=== PATIENT | female | born 1935 | race African-American/Black ===

== ENCOUNTER 2017-04-29 23:41 | Observation (INO) ==
[2017-04-30] MEDS ORDERED: ONDANSETRON 4 MG/2 ML VIAL IV STA (00:49)
[2017-04-30 01:17] LABS: Basophils % 0.4 % (0.0-0.8); Eosinophils # 0.1 10*3/uL (0.0-0.87); Eosinophils % 2.4 % (0.00-10.9); Hematocrit 38.8 VOL% (35.7-47.0); Hemoglobin 12.4 GM/DL (12.0-16.0); Immature Granulocytes % 0.2 %; Immature Granulocytes Absolute 0.01 #; Lymphocytes # 1.4 10*3/uL (1.4-4.0); Lymphocytes % 31.2 % (21.3-54.2); Mean Corpuscular Hemoglobin 29 PG (27-34); Mean Corpuscular Volume 91.7 FL (87-102); Mean Platelet Volume 11.6 FL (9.6-12.0); Monocytes # 0.6 10*3/uL (0.11-0.8); Neutrophils # 2.5 10*3/uL (1.4-7.4); Neutrophils % 53.8 % (38.7-73.9); Platelet Count 147 T/CUMM (130-400); Red Blood Count 4.23 MC/CUMM (3.8-5.5); Red Cell Distribution Width 14.5 % (9.3-17.3); White Blood Count 4.6 T/CUMM (4-12)
[2017-04-30 01:39] LABS: Albumin 3.6 G/DL (3.4-5.0); Bilirubin,Total 0.4 MG/DL (0.2-1.0); Calcium 7.6 MG/DL (8.5-10.1); Osmolality,Calculated 281.5 MOS/KG (273-304); Potassium 3.4 MMOL/L (3.5-5.1); Total Protein 7.3 G/DL (6.4-8.3)
[2017-04-30] MEDS ORDERED: ONDANSETRON 4 MG/2 ML VIAL ONE (01:39)
[2017-04-30 01:40] LABS: Troponin I Only 0.069 NG/ML (0.00-0.045)
[2017-04-30 02:01] LABS: Apearance,Urine CLEAR (Clear); Bacteria,Urine Occasional /HPF (Few); Bilirubin,Urine Negative (Negative); Blood, Urine Negative (Negative); Glucose,Urine (UA) Negative (Negative); Hyaline Casts,Urine 4 /LPF (0-3); Ketones,Urine Negative (Negative); Mucus,Urine Occasional /LPF (Occasional); Nitrite,Urine Negative (Negative); Protein,Urine 100 MG/DL; Urine Color Yellow (Yellow); Urine Specific Gravity 1.011 (1.001-1.035); Urine Urobilinogen < 2.0 EU/DL (0.2-1.0); WBC,Urine 8 /HPF (0-6)
[2017-04-30] MEDS ORDERED: ONDANSETRON 4 MG/2 ML VIAL IV PRN (04:26)
[2017-04-30] MEDS ORDERED: POLYVINYL ALCOHOL 1.4% OPH SOLN 15 ML BOTTLE BOTH EYES PRN (04:32)
[2017-04-30 08:28] LABS: Alanine Aminotransferase < 9 U/L (13-56); Albumin 2.7 G/DL (3.4-5.0); Alkaline Phosphatase 103 U/L (45-117); Aspartate Amino Transferase 11 U/L (0-37); Blood Urea Nitrogen 31 MG/DL (7-18); Calcium 7.3 MG/DL (8.5-10.1); Cholesterol 179 MG/DL (50-200); Glucose 75 MG/DL (74-106); HDL Cholesterol 70 MG/DL (40-60); Osmolality,Calculated 284.4 MOS/KG (273-304); Potassium 3.4 MMOL/L (3.5-5.1); Risk Ratio 2.56; Sodium 140 MMOL/L (136-145); Total Protein 5.8 G/DL (6.4-8.3); Triglycerides 61 MG/DL (2-150); VLDL CHOLESTEROL 12.2 MG/DL
[2017-04-30] MEDS: BRIMONIDINE/TIMOLOL OPH SOLN 5 ML BOTTLE BOTH EYES SCH ×2 (09:54→20:30)
[2017-04-30] MEDS: LEVOTHYROXINE 50 MCG TABLET PO SCH (09:55)
[2017-04-30] MEDS: ASPIRIN EC 81 MG TABLET PO SCH (09:55)
[2017-04-30] MEDS: PANTOPRAZOLE 40 MG TABLET PO SCH (09:55)
[2017-04-30] MEDS: risperiDONE 0.5 MG TABLET PO SCH (09:55)
[2017-04-30] MEDS: FAMOTIDINE 20 MG TABLET PO SCH ×2 (09:55→20:30)
[2017-04-30] MEDS: ENOXAPARIN 30 MG/0.3 ML SYRINGE SUBCUT SCH (09:56)
[2017-04-30 10:23] LABS: Free T4 (Free Thyroxine) 1.22 NG/DL (0.76-1.46); Thyroid Stimulating Hormone 1.55 uIU/ml (0.358-3.74)
[2017-04-30 12:56] LABS: Troponin I Only 0.068 NG/ML (0.00-0.045)
[2017-04-30 15:17] LABS: Troponin I Only 0.071 NG/ML (0.00-0.045)
[2017-04-30] MEDS: CALCIUM CARBONATE CHEW 500 MG TABLET PO SCH ×2 (17:52→17:56)
[2017-04-30] MEDS: CINACALCET 30 MG TABLET PO SCH (20:30)
[2017-04-30] MEDS: TRAVOPROST 0.004% OPH SOLN 2.5 ML BOTTLE BOTH EYES SCH (20:30)
[2017-04-30] MEDS: risperiDONE 1 MG TABLET PO SCH (20:30)
[2017-05-01 03:41] LABS: Basophils % 0.6 % (0.0-0.8); Eosinophils # 0.1 10*3/uL (0.0-0.87); Eosinophils % 2.8 % (0.00-10.9); Hematocrit 33.9 VOL% (35.7-47.0); Hemoglobin 10.5 GM/DL (12.0-16.0); Lymphocytes # 1.1 10*3/uL (1.4-4.0); Lymphocytes % 31.6 % (21.3-54.2); Mean Corpuscular Hemoglobin 29 PG (27-34); Mean Corpuscular Volume 93.4 FL (87-102); Monocytes # 0.7 10*3/uL (0.11-0.8); Monocytes % 18.8 % (1.7-12.7); Neutrophils # 1.6 10*3/uL (1.4-7.4); Neutrophils % 46.2 % (38.7-73.9); Platelet Count 131 T/CUMM (130-400); Red Blood Count 3.63 MC/CUMM (3.8-5.5); Red Cell Distribution Width 14.3 % (9.3-17.3); White Blood Count 3.5 T/CUMM (4-12)
[2017-05-01 04:02] LABS: Calcium 7.4 MG/DL (8.5-10.1); Magnesium 1.9 MG/DL (1.8-2.4); Osmolality,Calculated 283.1 MOS/KG (273-304); Potassium 3.7 MMOL/L (3.5-5.1)
[2017-05-01 05:04] LABS: Eosinophils 5 % (0-10); Hypochromasia 1+; Lymphocytes 32 % (20-55); Ovalocytes Slight; Platelet Estimate Normal; Segmented Neutrophils 49 % (50-85); Total Cells Counted 100
[2017-05-01] MEDS: LEVOTHYROXINE 50 MCG TABLET PO SCH (05:49)
[2017-05-01] MEDS: ENOXAPARIN 30 MG/0.3 ML SYRINGE SUBCUT SCH (09:03)
[2017-05-01] MEDS: risperiDONE 0.5 MG TABLET PO SCH (09:03)
[2017-05-01] MEDS: ASPIRIN EC 81 MG TABLET PO SCH (09:03)
[2017-05-01] MEDS: FAMOTIDINE 20 MG TABLET PO SCH ×2 (09:03→21:27)
[2017-05-01] MEDS: CALCIUM CARBONATE CHEW 500 MG TABLET PO SCH ×3 (09:03→17:28)
[2017-05-01] MEDS: PANTOPRAZOLE 40 MG TABLET PO SCH (09:03)
[2017-05-01] MEDS: BRIMONIDINE/TIMOLOL OPH SOLN 5 ML BOTTLE BOTH EYES SCH ×2 (09:04→21:26)
[2017-05-01] MEDS: TRAVOPROST 0.004% OPH SOLN 2.5 ML BOTTLE BOTH EYES SCH (21:27)
[2017-05-01] MEDS: CINACALCET 30 MG TABLET PO SCH (21:27)
[2017-05-01] MEDS: risperiDONE 1 MG TABLET PO SCH (21:27)
[2017-05-02 03:53] LABS: Basophils % 0.6 % (0.0-0.8); Eosinophils # 0.1 10*3/uL (0.0-0.87); Eosinophils % 3.7 % (0.00-10.9); Hemoglobin 10.3 GM/DL (12.0-16.0); Immature Granulocytes % 0.3 %; Immature Granulocytes Absolute 0.01 #; Lymphocytes # 1.3 10*3/uL (1.4-4.0); Lymphocytes % 41.4 % (21.3-54.2); Mean Corpuscular HGB Conc 31.2 GM/DL (32-36); Mean Corpuscular Hemoglobin 29 PG (27-34); Mean Corpuscular Volume 92.2 FL (87-102); Mean Platelet Volume 11.5 FL (9.6-12.0); Monocytes # 0.5 10*3/uL (0.11-0.8); Monocytes % 14.8 % (1.7-12.7); Neutrophils # 1.3 10*3/uL (1.4-7.4); Neutrophils % 39.2 % (38.7-73.9); Platelet Count 137 T/CUMM (130-400); Red Blood Count 3.58 MC/CUMM (3.8-5.5); Red Cell Distribution Width 14.3 % (9.3-17.3); White Blood Count 3.2 T/CUMM (4-12)
[2017-05-02 04:56] LABS: Burr Cells Slight; Calcium 7.5 MG/DL (8.5-10.1); Giant Platelets Few; Hypochromasia 1+; Magnesium 1.8 MG/DL (1.8-2.4); Osmolality,Calculated 283.4 MOS/KG (273-304); Ovalocytes Slight; Platelet Estimate Normal
[2017-05-02] MEDS: LEVOTHYROXINE 50 MCG TABLET PO SCH (06:03)
[2017-05-02 08:18] VITALS: BP 136/69
[2017-05-02] MEDS: ENOXAPARIN 30 MG/0.3 ML SYRINGE SUBCUT SCH (08:32)
[2017-05-02] MEDS: FAMOTIDINE 20 MG TABLET PO SCH (08:33)
[2017-05-02] MEDS: CALCIUM CARBONATE CHEW 500 MG TABLET PO SCH ×3 (08:33→17:04)
[2017-05-02] MEDS: PANTOPRAZOLE 40 MG TABLET PO SCH (08:33)
[2017-05-02] MEDS: risperiDONE 0.5 MG TABLET PO SCH (08:33)
[2017-05-02] MEDS: ASPIRIN EC 81 MG TABLET PO SCH (08:33)
[2017-05-02] MEDS: BRIMONIDINE/TIMOLOL OPH SOLN 5 ML BOTTLE BOTH EYES SCH (08:33)
== END 2017-05-02 16:52 | disposition home or self-care (01) ==
LOC: N.ED 23:41 → N.TELEN 23:41 → SUATTDRO 04-30 04:26 → N.TELEN 04-30 05:02
PROVIDERS: ADMIT Internal Medicine; ATTEND Hospitalist

== ENCOUNTER 2017-06-22 05:36 | Inpatient (IN) ==
[2017-06-22 07:21] LABS: PT Patient Result 10.8 SECS
[2017-06-22 07:41] LABS: Calcium 6.6 MG/DL (8.5-10.1); Magnesium 1.8 MG/DL (1.8-2.4); Osmolality,Calculated 288.5 MOS/KG (273-304); Potassium 4.1 MMOL/L (3.5-5.1)
[2017-06-22 08:21] LABS: Basophils % 0.5 % (0.0-0.8); Eosinophils # 0.1 10*3/uL (0.0-0.87); Hemoglobin 10.3 GM/DL (12.0-16.0); Immature Granulocytes % 0.2 %; Immature Granulocytes Absolute 0.01 #; Lymphocytes # 1.4 10*3/uL (1.4-4.0); Lymphocytes % 32.5 % (21.3-54.2); Mean Corpuscular HGB Conc 32.2 GM/DL (32-36); Mean Corpuscular Hemoglobin 30 PG (27-34); Mean Corpuscular Volume 93.8 FL (87-102); Mean Platelet Volume 10.6 FL (9.6-12.0); Monocytes # 0.6 10*3/uL (0.11-0.8); Neutrophils # 2.2 10*3/uL (1.4-7.4); Neutrophils % 49.8 % (38.7-73.9); Platelet Count 148 T/CUMM (130-400); Red Blood Count 3.41 MC/CUMM (3.8-5.5); Red Cell Distribution Width 15.9 % (9.3-17.3); White Blood Count 4.4 T/CUMM (4-12)
[2017-06-22] MEDS ORDERED: ACETAMINOPHEN 325 MG TABLET PO PRN (10:58)
[2017-06-22] MEDS ORDERED: ONDANSETRON 4 MG/2 ML VIAL IV PRN (10:58)
[2017-06-22] MEDS ORDERED: CARBOXYMETHYLCELLULOSE 1% OPH SOLN BOTH EYES PRN (11:30)
[2017-06-22] MEDS ORDERED: LIDOCAINE/PRILOCAINE CREAM 5 GM TUBE TOP SCH (11:30)
[2017-06-22] MEDS: CALCIUM CARBONATE CHEW 500 MG TABLET PO SCH ×2 (12:51→18:48)
[2017-06-22] MEDS: PANTOPRAZOLE 40 MG VIAL IV SCH (12:52)
[2017-06-22] MEDS: SODIUM CHLORIDE 0.9% 1,000 ML IV SCH (14:15)
[2017-06-22] MEDS: CINACALCET 30 MG TABLET PO SCH (21:25)
[2017-06-22] MEDS: risperiDONE 1 MG TABLET PO SCH (21:25)
[2017-06-22] MEDS: FAMOTIDINE 20 MG TABLET PO SCH (21:25)
[2017-06-22] MEDS: BRIMONIDINE/TIMOLOL OPH SOLN 5 ML BOTTLE BOTH EYES SCH (21:28)
[2017-06-22] MEDS: TRAVOPROST 0.004% OPH SOLN 2.5 ML BOTTLE BOTH EYES SCH (21:28)
[2017-06-22] MEDS: MINERAL OIL/PETROLATUM OPH OINT 3.5 GM TUBE BOTH EYES SCH (21:28)
[2017-06-23 04:57] LABS: Basophils % 0.6 % (0.0-0.8); Eosinophils # 0.1 10*3/uL (0.0-0.87); Eosinophils % 3.5 % (0.00-10.9); Hematocrit 27.9 VOL% (35.7-47.0); Lymphocytes # 1.2 10*3/uL (1.4-4.0); Lymphocytes % 36.9 % (21.3-54.2); Mean Corpuscular HGB Conc 32.3 GM/DL (32-36); Mean Corpuscular Hemoglobin 30 PG (27-34); Mean Corpuscular Volume 92.7 FL (87-102); Mean Platelet Volume 10.5 FL (9.6-12.0); Monocytes # 0.5 10*3/uL (0.11-0.8); Monocytes % 16.7 % (1.7-12.7); Neutrophils # 1.3 10*3/uL (1.4-7.4); Neutrophils % 42.3 % (38.7-73.9); Platelet Count 146 T/CUMM (130-400); Red Blood Count 3.01 MC/CUMM (3.8-5.5); Red Cell Distribution Width 15.6 % (9.3-17.3); White Blood Count 3.2 T/CUMM (4-12)
[2017-06-23 05:21] LABS: Calcium 6.4 MG/DL (8.5-10.1); Osmolality,Calculated 285.3 MOS/KG (273-304); Potassium 3.5 MMOL/L (3.5-5.1)
[2017-06-23 05:32] LABS: Eosinophils 5 % (0-10); Lymphocytes 37 % (20-55); Segmented Neutrophils 44 % (50-85); Total Cells Counted 100
[2017-06-23 05:33] LABS: Anisocytosis 1+; Poikilocytosis 1+
[2017-06-23] MEDS: LEVOTHYROXINE 50 MCG TABLET PO SCH (06:32)
[2017-06-23] MEDS: CALCIUM CARBONATE CHEW 500 MG TABLET PO SCH ×3 (09:24→16:22)
[2017-06-23] MEDS: risperiDONE 0.5 MG TABLET PO SCH (09:24)
[2017-06-23] MEDS: ASPIRIN EC 81 MG TABLET PO SCH (09:24)
[2017-06-23] MEDS: FAMOTIDINE 20 MG TABLET PO SCH ×2 (09:24→21:34)
[2017-06-23] MEDS: BRIMONIDINE/TIMOLOL OPH SOLN 5 ML BOTTLE BOTH EYES SCH ×2 (09:25→21:35)
[2017-06-23] MEDS: PANTOPRAZOLE 40 MG VIAL IV SCH (09:26)
[2017-06-23] MEDS ORDERED: LOPERAMIDE 2 MG CAPSULE PO PRN (10:29)
[2017-06-23 10:52] LABS: Basophils % 0.7 % (0.0-0.8); Eosinophils # 0.1 10*3/uL (0.0-0.87); Eosinophils % 2.4 % (0.00-10.9); Hemoglobin 9.7 GM/DL (12.0-16.0); Lymphocytes # 0.9 10*3/uL (1.4-4.0); Lymphocytes % 30.6 % (21.3-54.2); Mean Corpuscular HGB Conc 32.3 GM/DL (32-36); Mean Corpuscular Hemoglobin 30 PG (27-34); Mean Corpuscular Volume 93.8 FL (87-102); Mean Platelet Volume 10.2 FL (9.6-12.0); Monocytes # 0.5 10*3/uL (0.11-0.8); Monocytes % 15.3 % (1.7-12.7); Neutrophils # 1.5 10*3/uL (1.4-7.4); Platelet Count 156 T/CUMM (130-400); Red Cell Distribution Width 15.4 % (9.3-17.3); White Blood Count 2.9 T/CUMM (4-12)
[2017-06-23] MEDS: SODIUM CHLORIDE 0.9% 1,000 ML IV SCH (13:55)
[2017-06-23] MEDS: CINACALCET 30 MG TABLET PO SCH (21:34)
[2017-06-23] MEDS: risperiDONE 1 MG TABLET PO SCH (21:34)
[2017-06-23] MEDS: MINERAL OIL/PETROLATUM OPH OINT 3.5 GM TUBE BOTH EYES SCH (21:35)
[2017-06-23] MEDS: TRAVOPROST 0.004% OPH SOLN 2.5 ML BOTTLE BOTH EYES SCH (21:35)
[2017-06-24 06:22] LABS: Basophils % 0.2 % (0.0-0.8); Eosinophils # 0.1 10*3/uL (0.0-0.87); Eosinophils % 3.2 % (0.00-10.9); Hematocrit 27.1 VOL% (35.7-47.0); Hemoglobin 8.7 GM/DL (12.0-16.0); Lymphocytes # 1.4 10*3/uL (1.4-4.0); Lymphocytes % 33.6 % (21.3-54.2); Mean Corpuscular HGB Conc 32.1 GM/DL (32-36); Mean Corpuscular Hemoglobin 30 PG (27-34); Mean Corpuscular Volume 92.2 FL (87-102); Mean Platelet Volume 10.7 FL (9.6-12.0); Monocytes # 0.7 10*3/uL (0.11-0.8); Monocytes % 17.4 % (1.7-12.7); Neutrophils # 1.9 10*3/uL (1.4-7.4); Neutrophils % 45.6 % (38.7-73.9); Platelet Count 137 T/CUMM (130-400); Red Blood Count 2.94 MC/CUMM (3.8-5.5); Red Cell Distribution Width 15.3 % (9.3-17.3); White Blood Count 4.1 T/CUMM (4-12)
[2017-06-24 06:55] LABS: Eosinophils 1 % (0-10); Giant Platelets Few; Hypochromasia 1+; Lymphocytes 28 % (20-55); Ovalocytes Slight; Platelet Estimate Normal; Segmented Neutrophils 58 % (50-85); Total Cells Counted 100
[2017-06-24] MEDS: LEVOTHYROXINE 50 MCG TABLET PO SCH (06:55)
[2017-06-24 07:03] LABS: Calcium 6.4 MG/DL (8.5-10.1); Magnesium 1.6 MG/DL (1.8-2.4); Osmolality,Calculated 285.4 MOS/KG (273-304); Potassium 3.6 MMOL/L (3.5-5.1)
[2017-06-24 08:30] VITALS: BP 136/66
[2017-06-24] MEDS: PANTOPRAZOLE 40 MG VIAL IV SCH (08:44)
[2017-06-24] MEDS: risperiDONE 0.5 MG TABLET PO SCH (08:44)
[2017-06-24] MEDS: FAMOTIDINE 20 MG TABLET PO SCH (08:44)
[2017-06-24] MEDS: BRIMONIDINE/TIMOLOL OPH SOLN 5 ML BOTTLE BOTH EYES SCH (08:44)
[2017-06-24] MEDS: CALCIUM CARBONATE CHEW 500 MG TABLET PO SCH (08:44)
[2017-06-24] MEDS: ASPIRIN EC 81 MG TABLET PO SCH (08:44)
== END 2017-06-24 11:11 | disposition home health service (06) | DRG 377 ==
LOC: N.ED 05:36 → N.EDINP 07:02 → N.TELEN 08:17
PROVIDERS: ADMIT Internal Medicine; ATTEND Internal Medicine

== ENCOUNTER 2018-08-04 14:20 | Inpatient (IN) ==
[2018-08-04] MEDS ORDERED: ALBUTEROL/IPRATROPIUM 3 ML NEB RESP TX STA (15:18)
[2018-08-04] MEDS ORDERED: ONDANSETRON 4 MG/2 ML VIAL IV STA (15:18)
[2018-08-04] MEDS ORDERED: methylPREDNISolone SOD SUC 125 MG/2 ML VIAL IV STA (15:18)
[2018-08-04] MEDS ORDERED: LEVOFLOXACIN INJ 750 MG in PREMIX 1 EACH IV STA (15:18)
[2018-08-04 15:42] LABS: Basophils % 0.7 % (0.0-0.8); Eosinophils # 0.1 10*3/uL (0.0-0.87); Eosinophils % 4.1 % (0.00-10.9); Hematocrit 38.5 VOL% (35.7-47.0); Hemoglobin 11.5 GM/DL (12.0-16.0); Immature Granulocytes % 0.3 %; Immature Granulocytes Absolute 0.01 #; Lymphocytes # 0.6 10*3/uL (1.4-4.0); Lymphocytes % 19.5 % (21.3-54.2); Mean Corpuscular HGB Conc 29.9 GM/DL (32-36); Mean Corpuscular Hemoglobin 30 PG (27-34); Mean Corpuscular Volume 99.2 FL (87-102); Mean Platelet Volume 11.2 FL (9.6-12.0); Monocytes # 0.5 10*3/uL (0.11-0.8); Monocytes % 15.7 % (1.7-12.7); Neutrophils # 1.8 10*3/uL (1.4-7.4); Neutrophils % 59.7 % (38.7-73.9); Platelet Count 153 T/CUMM (130-400); Red Blood Count 3.88 MC/CUMM (3.8-5.5); Red Cell Distribution Width 16.1 % (9.3-17.3); White Blood Count 2.9 T/CUMM (4-12)
[2018-08-04 16:06] LABS: Eosinophils 5 % (0-10); Hypochromasia Slight; Lymphocytes 20 % (20-55); Segmented Neutrophils 66 % (50-85); Total Cells Counted 100; Troponin I 0.054 NG/ML (0.00-0.045)
[2018-08-04 16:07] LABS: Platelet Estimate Adequate
[2018-08-04 16:15] LABS: Alanine Aminotransferase < 9 U/L (13-56); Albumin 3.3 G/DL (3.4-5.0); Alkaline Phosphatase 81 U/L (45-117); Aspartate Amino Transferase 16 U/L (0-37); Bilirubin,Total < 0.39 MG/DL (0.2-1.0); Blood Urea Nitrogen 14 MG/DL (7-18); Calcium 7.6 MG/DL (8.5-10.1); Glucose 90 MG/DL (74-106); Osmolality,Calculated 279.4 MOS/KG (273-304); Sodium 140 MMOL/L (136-145); Total Protein 6.8 G/DL (6.4-8.3)
[2018-08-04] MEDS ORDERED: ONDANSETRON 4 MG/2 ML VIAL IV PRN (17:15)
[2018-08-04] MEDS ORDERED: VANCOMYCIN 1,000 MG VIAL ONE (18:07)
[2018-08-04] MEDS ORDERED: VANCOMYCIN INJ 1,000 MG in SODIUM CHLORIDE 0.9% 250 ML IV ONE ×2 (18:15→18:30)
[2018-08-04] MEDS: FAMOTIDINE 20 MG TABLET PO SCH (20:50)
[2018-08-04] MEDS: CARVEDILOL 12.5 MG TABLET PO SCH (20:50)
[2018-08-04] MEDS: risperiDONE 1 MG TABLET PO SCH (20:50)
[2018-08-04] MEDS: LOSARTAN 50 MG TABLET PO SCH (20:50)
[2018-08-04] MEDS: PIPERACILLIN/TAZOBACTAM 3,375 MG in SODIUM CHLORIDE 0.9% 100 ML IV SCH (20:51)
[2018-08-04] MEDS: TRAVOPROST 0.004% OPH SOLN 2.5 ML BOTTLE BOTH EYES SCH (21:04)
[2018-08-04] MEDS: BRIMONIDINE/TIMOLOL OPH SOLN 5 ML BOTTLE BOTH EYES SCH (21:04)
[2018-08-04] MEDS: HEPARIN 5,000 UNIT/1 ML VIAL SUBCUT SCH (21:04)
[2018-08-04] MEDS: BRINZOLAMIDE 1% OPH SUSP 10 ML BOTTLE BOTH EYES SCH (22:00)
[2018-08-05 05:38] LABS: Eosinophils % 0.4 % (0.00-10.9); Hematocrit 36.1 VOL% (35.7-47.0); Hemoglobin 10.7 GM/DL (12.0-16.0); Immature Granulocytes % 0.4 %; Immature Granulocytes Absolute 0.01 #; Lymphocytes # 0.5 10*3/uL (1.4-4.0); Mean Corpuscular HGB Conc 29.6 GM/DL (32-36); Mean Corpuscular Hemoglobin 30 PG (27-34); Mean Corpuscular Volume 100.8 FL (87-102); Mean Platelet Volume 11.1 FL (9.6-12.0); Monocytes # 0.1 10*3/uL (0.11-0.8); Monocytes % 3.8 % (1.7-12.7); Neutrophils % 77.4 % (38.7-73.9); Platelet Count 140 T/CUMM (130-400); Red Blood Count 3.58 MC/CUMM (3.8-5.5); Red Cell Distribution Width 15.9 % (9.3-17.3); White Blood Count 2.6 T/CUMM (4-12)
[2018-08-05 06:02] LABS: Calcium 7.3 MG/DL (8.5-10.1); Osmolality,Calculated 276.7 MOS/KG (273-304); Potassium 4.6 MMOL/L (3.5-5.1)
[2018-08-05] MEDS: LEVOTHYROXINE 50 MCG TABLET PO SCH (06:22)
[2018-08-05] MEDS: PIPERACILLIN/TAZOBACTAM 3,375 MG in SODIUM CHLORIDE 0.9% 100 ML IV SCH ×2 (06:30→22:00)
[2018-08-05] MEDS: CARVEDILOL 12.5 MG TABLET PO SCH ×2 (09:20→22:00)
[2018-08-05] MEDS: CALCIUM CARBONATE CHEW 500 MG TABLET PO SCH ×3 (09:21→17:38)
[2018-08-05] MEDS: risperiDONE 0.5 MG TABLET PO SCH (09:21)
[2018-08-05] MEDS: FAMOTIDINE 20 MG TABLET PO SCH ×2 (09:21→22:00)
[2018-08-05] MEDS: ASPIRIN EC 81 MG TABLET PO SCH (09:21)
[2018-08-05] MEDS: LIDOCAINE/PRILOCAINE CREAM 5 GM TUBE TOP SCH (09:21)
[2018-08-05] MEDS: BRIMONIDINE/TIMOLOL OPH SOLN 5 ML BOTTLE BOTH EYES SCH ×2 (09:21→22:03)
[2018-08-05] MEDS: HEPARIN 5,000 UNIT/1 ML VIAL SUBCUT SCH ×2 (09:22→22:00)
[2018-08-05] MEDS: BRINZOLAMIDE 1% OPH SUSP 10 ML BOTTLE BOTH EYES SCH ×2 (09:22→22:04)
[2018-08-05] MEDS ORDERED: VANCOMYCIN INJ 500 MG in SODIUM CHLORIDE 0.9% 100 ML IV PRN (10:32)
[2018-08-05] MEDS ORDERED: VANCOMYCIN INJ 500 MG in SODIUM CHLORIDE 0.9% 100 ML IV ONE ×2 (11:00→17:00)
[2018-08-05] MEDS: ACETAMINOPHEN 325 MG TABLET PO PRN (11:25)
[2018-08-05] MEDS: CINACALCET 30 MG TABLET PO SCH (17:38)
[2018-08-05] MEDS: risperiDONE 1 MG TABLET PO SCH (22:00)
[2018-08-05] MEDS: LOSARTAN 50 MG TABLET PO SCH (22:00)
[2018-08-05] MEDS: TRAVOPROST 0.004% OPH SOLN 2.5 ML BOTTLE BOTH EYES SCH (22:03)
[2018-08-06] MEDS ORDERED: ALBUTEROL/IPRATROPIUM 3 ML NEB RESP TX PRN (06:07)
[2018-08-06] MEDS ORDERED: guaiFENesin 200 MG/10 ML UDCUP PO PRN (06:07)
[2018-08-06] MEDS: LEVOTHYROXINE 50 MCG TABLET PO SCH (06:30)
[2018-08-06 06:51] LABS: Basophils % 0.3 % (0.0-0.8); Eosinophils % 0.5 % (0.00-10.9); Hematocrit 33.8 VOL% (35.7-47.0); Hemoglobin 10.1 GM/DL (12.0-16.0); Immature Granulocytes % 0.3 %; Immature Granulocytes Absolute 0.01 #; Lymphocytes # 0.4 10*3/uL (1.4-4.0); Lymphocytes % 9.8 % (21.3-54.2); Mean Corpuscular HGB Conc 29.9 GM/DL (32-36); Mean Corpuscular Hemoglobin 29 PG (27-34); Mean Corpuscular Volume 97.7 FL (87-102); Mean Platelet Volume 10.8 FL (9.6-12.0); Monocytes # 0.4 10*3/uL (0.11-0.8); Neutrophils # 3.1 10*3/uL (1.4-7.4); Neutrophils % 78.1 % (38.7-73.9); Platelet Count 141 T/CUMM (130-400); Red Blood Count 3.46 MC/CUMM (3.8-5.5); Red Cell Distribution Width 15.9 % (9.3-17.3)
[2018-08-06 07:13] LABS: Calcium 7.4 MG/DL (8.5-10.1); Potassium 4.2 MMOL/L (3.5-5.1)
[2018-08-06] MEDS: BRIMONIDINE/TIMOLOL OPH SOLN 5 ML BOTTLE BOTH EYES SCH ×2 (08:59→21:29)
[2018-08-06] MEDS: HEPARIN 5,000 UNIT/1 ML VIAL SUBCUT SCH ×2 (09:00→21:29)
[2018-08-06] MEDS: FAMOTIDINE 20 MG TABLET PO SCH ×2 (09:00→21:29)
[2018-08-06] MEDS: CALCIUM CARBONATE CHEW 500 MG TABLET PO SCH ×4 (09:00→17:03)
[2018-08-06] MEDS: risperiDONE 0.5 MG TABLET PO SCH (09:00)
[2018-08-06] MEDS: ASPIRIN EC 81 MG TABLET PO SCH (09:00)
[2018-08-06] MEDS: CARVEDILOL 12.5 MG TABLET PO SCH ×2 (09:00→21:29)
[2018-08-06] MEDS: ACETAMINOPHEN 325 MG TABLET PO PRN (09:00)
[2018-08-06] MEDS: PIPERACILLIN/TAZOBACTAM 3,375 MG in SODIUM CHLORIDE 0.9% 100 ML IV SCH ×2 (09:00→19:31)
[2018-08-06] MEDS: BRINZOLAMIDE 1% OPH SUSP 10 ML BOTTLE BOTH EYES SCH ×2 (09:01→23:39)
[2018-08-06] MEDS: ALBUTEROL/IPRATROPIUM 3 ML NEB RESP TX SCH ×3 (11:15→18:40)
[2018-08-06] MEDS: CINACALCET 30 MG TABLET PO SCH (17:03)
[2018-08-06] MEDS: LOSARTAN 50 MG TABLET PO SCH (21:29)
[2018-08-06] MEDS: TRAVOPROST 0.004% OPH SOLN 2.5 ML BOTTLE BOTH EYES SCH (21:29)
[2018-08-06] MEDS: risperiDONE 1 MG TABLET PO SCH (21:29)
[2018-08-07] MEDS: ALBUTEROL/IPRATROPIUM 3 ML NEB RESP TX SCH ×7 (02:48→23:46)
[2018-08-07] MEDS: LEVOTHYROXINE 50 MCG TABLET PO SCH (06:40)
[2018-08-07 07:43] LABS: Basophils % 0.3 % (0.0-0.8); Eosinophils # 0.1 10*3/uL (0.0-0.87); Eosinophils % 1.8 % (0.00-10.9); Hematocrit 32.7 VOL% (35.7-47.0); Hemoglobin 9.9 GM/DL (12.0-16.0); Immature Granulocytes % 0.3 %; Immature Granulocytes Absolute 0.01 #; Lymphocytes # 0.8 10*3/uL (1.4-4.0); Lymphocytes % 23.2 % (21.3-54.2); Mean Corpuscular HGB Conc 30.3 GM/DL (32-36); Mean Corpuscular Hemoglobin 30 PG (27-34); Mean Corpuscular Volume 97.6 FL (87-102); Mean Platelet Volume 10.9 FL (9.6-12.0); Monocytes # 0.6 10*3/uL (0.11-0.8); Monocytes % 17.4 % (1.7-12.7); Neutrophils # 1.9 10*3/uL (1.4-7.4); Red Blood Count 3.35 MC/CUMM (3.8-5.5); Red Cell Distribution Width 15.9 % (9.3-17.3); White Blood Count 3.4 T/CUMM (4-12)
[2018-08-07 07:44] LABS: Platelet Count 110 T/CUMM (130-400)
[2018-08-07 08:00] LABS: Calcium 6.9 MG/DL (8.5-10.1); Osmolality,Calculated 275.8 MOS/KG (273-304); Potassium 3.9 MMOL/L (3.5-5.1)
[2018-08-07 08:11] LABS: Eosinophils 2 % (0-10); Hypochromasia 1+; Lymphocytes 20 % (20-55); Platelet Estimate Decreased; Segmented Neutrophils 62 % (50-85); Total Cells Counted 100
[2018-08-07] MEDS: PIPERACILLIN/TAZOBACTAM 3,375 MG in SODIUM CHLORIDE 0.9% 100 ML IV SCH ×2 (08:40→21:03)
[2018-08-07] MEDS: ASPIRIN EC 81 MG TABLET PO SCH (08:43)
[2018-08-07] MEDS: FAMOTIDINE 20 MG TABLET PO SCH ×2 (08:43→21:04)
[2018-08-07] MEDS: HEPARIN 5,000 UNIT/1 ML VIAL SUBCUT SCH ×2 (08:43→21:03)
[2018-08-07] MEDS: CALCIUM CARBONATE CHEW 500 MG TABLET PO SCH ×3 (08:43→15:58)
[2018-08-07] MEDS: BRIMONIDINE/TIMOLOL OPH SOLN 5 ML BOTTLE BOTH EYES SCH ×2 (08:43→21:04)
[2018-08-07] MEDS: CARVEDILOL 12.5 MG TABLET PO SCH ×2 (08:46→21:04)
[2018-08-07] MEDS: risperiDONE 0.5 MG TABLET PO SCH (08:47)
[2018-08-07] MEDS ORDERED: VANCOMYCIN INJ 500 MG in SODIUM CHLORIDE 0.9% 100 ML IV ONE (10:00)
[2018-08-07] MEDS: LIDOCAINE/PRILOCAINE CREAM 5 GM TUBE TOP SCH (11:04)
[2018-08-07] MEDS ORDERED: VANCOMYCIN INJ 500 MG in SODIUM CHLORIDE 0.9% 100 ML IV PRN (15:00)
[2018-08-07] MEDS: CINACALCET 30 MG TABLET PO SCH (18:35)
[2018-08-07] MEDS: LOSARTAN 50 MG TABLET PO SCH (21:04)
[2018-08-07] MEDS: TRAVOPROST 0.004% OPH SOLN 2.5 ML BOTTLE BOTH EYES SCH (21:04)
[2018-08-07] MEDS: risperiDONE 1 MG TABLET PO SCH (21:04)
[2018-08-07] MEDS ORDERED: cycloSPORINE OPH EMUL 1 VIAL BOTH EYES SCH ×2 (21:30→22:00)
[2018-08-07] MEDS: cycloSPORINE OPH EMUL 1 VIAL BOTH EYES SCH (22:20)
[2018-08-08] MEDS: ALBUTEROL/IPRATROPIUM 3 ML NEB RESP TX SCH ×6 (03:56→23:37)
[2018-08-08] MEDS: LEVOTHYROXINE 50 MCG TABLET PO SCH (06:56)
[2018-08-08 07:31] LABS: Eosinophils # 0.2 10*3/uL (0.0-0.87); Eosinophils % 3.7 % (0.00-10.9); Hematocrit 31.3 VOL% (35.7-47.0); Hemoglobin 9.4 GM/DL (12.0-16.0); Immature Granulocytes % 0.5 %; Immature Granulocytes Absolute 0.02 #; Lymphocytes # 1.1 10*3/uL (1.4-4.0); Lymphocytes % 26.6 % (21.3-54.2); Mean Corpuscular Hemoglobin 30 PG (27-34); Mean Corpuscular Volume 98.1 FL (87-102); Mean Platelet Volume 10.6 FL (9.6-12.0); Monocytes # 0.7 10*3/uL (0.11-0.8); Monocytes % 16.8 % (1.7-12.7); Neutrophils # 2.3 10*3/uL (1.4-7.4); Neutrophils % 52.4 % (38.7-73.9); Red Blood Count 3.19 MC/CUMM (3.8-5.5); Red Cell Distribution Width 15.8 % (9.3-17.3); White Blood Count 4.3 T/CUMM (4-12)
[2018-08-08 07:35] LABS: Platelet Count 99 T/CUMM (130-400)
[2018-08-08 07:53] LABS: Calcium 7.1 MG/DL (8.5-10.1); Eosinophils 2 % (0-10); Lymphocytes 29 % (20-55); Osmolality,Calculated 276.5 MOS/KG (273-304); Potassium 3.6 MMOL/L (3.5-5.1); Segmented Neutrophils 59 % (50-85); Total Cells Counted 100
[2018-08-08 07:54] LABS: Hypochromasia 1+; Microcytosis 1+; Ovalocytes Slight
[2018-08-08 07:56] LABS: Tear Drop Cells Slight
[2018-08-08 07:57] LABS: Platelet Estimate Decreased
[2018-08-08] MEDS: CALCIUM CARBONATE CHEW 500 MG TABLET PO SCH ×3 (08:15→17:14)
[2018-08-08] MEDS: PIPERACILLIN/TAZOBACTAM 3,375 MG in SODIUM CHLORIDE 0.9% 100 ML IV SCH ×2 (08:15→20:33)
[2018-08-08] MEDS: CARVEDILOL 12.5 MG TABLET PO SCH ×2 (10:00→20:32)
[2018-08-08] MEDS: FAMOTIDINE 20 MG TABLET PO SCH ×2 (10:00→20:31)
[2018-08-08] MEDS: BRINZOLAMIDE 1% OPH SUSP 10 ML BOTTLE BOTH EYES SCH ×2 (10:00→20:46)
[2018-08-08] MEDS: HEPARIN 5,000 UNIT/1 ML VIAL SUBCUT SCH ×2 (10:00→20:32)
[2018-08-08] MEDS: ASPIRIN EC 81 MG TABLET PO SCH (10:00)
[2018-08-08] MEDS: cycloSPORINE OPH EMUL 1 VIAL BOTH EYES SCH ×2 (10:01→20:44)
[2018-08-08] MEDS: BRIMONIDINE/TIMOLOL OPH SOLN 5 ML BOTTLE BOTH EYES SCH ×2 (10:01→20:41)
[2018-08-08] MEDS: CINACALCET 30 MG TABLET PO SCH (17:14)
[2018-08-08] MEDS: risperiDONE 1 MG TABLET PO SCH (20:31)
[2018-08-08] MEDS: LOSARTAN 50 MG TABLET PO SCH (20:32)
[2018-08-08] MEDS: TRAVOPROST 0.004% OPH SOLN 2.5 ML BOTTLE BOTH EYES SCH (20:47)
[2018-08-09] MEDS: ALBUTEROL/IPRATROPIUM 3 ML NEB RESP TX SCH ×3 (02:29→10:37)
[2018-08-09] MEDS: LEVOTHYROXINE 50 MCG TABLET PO SCH (06:03)
[2018-08-09] MEDS: FAMOTIDINE 20 MG TABLET PO SCH (08:02)
[2018-08-09] MEDS: CALCIUM CARBONATE CHEW 500 MG TABLET PO SCH ×2 (08:02→13:21)
[2018-08-09] MEDS: PIPERACILLIN/TAZOBACTAM 3,375 MG in SODIUM CHLORIDE 0.9% 100 ML IV SCH (08:02)
[2018-08-09] MEDS: BRINZOLAMIDE 1% OPH SUSP 10 ML BOTTLE BOTH EYES SCH (08:03)
[2018-08-09] MEDS: HEPARIN 5,000 UNIT/1 ML VIAL SUBCUT SCH (08:03)
[2018-08-09] MEDS: BRIMONIDINE/TIMOLOL OPH SOLN 5 ML BOTTLE BOTH EYES SCH (08:03)
[2018-08-09] MEDS: CARVEDILOL 12.5 MG TABLET PO SCH (08:03)
[2018-08-09] MEDS: ASPIRIN EC 81 MG TABLET PO SCH (08:03)
[2018-08-09] MEDS: cycloSPORINE OPH EMUL 1 VIAL BOTH EYES SCH (08:04)
[2018-08-09] MEDS: LIDOCAINE/PRILOCAINE CREAM 5 GM TUBE TOP SCH (08:04)
[2018-08-09 09:06] VITALS: BP 102/51
== END 2018-08-09 14:08 | disposition home health service (06) | DRG 193 ==
LOC: N.ED 14:20 → N.EDINP 17:15 → N.5E 18:29
PROVIDERS: ADMIT Internal Medicine; ATTEND Internal Medicine

== ENCOUNTER 2020-01-11 01:50 | Inpatient (IN) ==
[2020-01-11 02:48] LABS: Basophils % 0.4 % (0.0-0.8); Eosinophils # 0.3 10*3/uL (0.0-0.87); Eosinophils % 5.1 % (0.00-10.9); Hemoglobin 9.6 GM/DL (12.0-16.0); Immature Granulocytes % 0.4 %; Immature Granulocytes Absolute 0.02 #; Lymphocytes # 1.1 10*3/uL (1.4-4.0); Lymphocytes % 22.2 % (21.3-54.2); Mean Corpuscular Volume 91.7 FL (87-102); Mean Platelet Volume 12.5 FL (9.6-12.0); Monocytes % 10.4 % (1.7-12.7); Neutrophils % 61.5 % (38.7-73.9); Platelet Count 111 T/CUMM (130-400); Red Blood Count 3.49 MC/CUMM (3.8-5.5); Red Cell Distribution Width 20.1 % (9.3-17.3); White Blood Count 4.9 T/CUMM (4-12)
[2020-01-11 02:57] LABS: INR 1.2; PT Patient Result 12.4 SECS (9.8-11.9)
[2020-01-11 03:11] LABS: Alanine Aminotransferase 9 U/L (13-56); Albumin 2.6 G/DL (3.4-5.0); Alkaline Phosphatase 123 U/L (45-117); Aspartate Amino Transferase 13 U/L (0-37); Bilirubin,Total < 0.39 MG/DL (0.2-1.0); Blood Urea Nitrogen 17 MG/DL (7-18); Calcium 8.6 MG/DL (8.5-10.1); Estimated Glom Filtration Rate 9 ML/MIN; Glucose 121 MG/DL (74-106); Osmolality,Calculated 281.4 MOS/KG (273-304); Total Protein 6.3 G/DL (6.4-8.3)
[2020-01-11] MEDS ORDERED: BISACODYL 5 MG TABLET PO PRN (03:58)
[2020-01-11] MEDS ORDERED: ACETAMINOPHEN 325 MG TABLET PO PRN (03:58)
[2020-01-11] MEDS ORDERED: ONDANSETRON 4 MG/2 ML VIAL IV PRN (03:58)
[2020-01-11] MEDS ORDERED: ALBUTEROL 2.5 MG/3 ML NEB RESP TX PRN (04:04)
[2020-01-11] MEDS ORDERED: PROMETHAZINE 12.5 MG PO PRN (04:04)
[2020-01-11 06:10] LABS: Hematocrit 26.2 VOL% (35.7-47.0); Hemoglobin 8.1 GM/DL (12.0-16.0)
[2020-01-11] MEDS: LEVOTHYROXINE 50 MCG TABLET PO SCH (06:27)
[2020-01-11] MEDS: carvediloL 12.5 MG TABLET PO SCH ×2 (09:53→17:02)
[2020-01-11] MEDS: CYPROHEPTADINE 4 MG TABLET PO SCH (09:53)
[2020-01-11] MEDS: POLYETHYLENE GLYCOL POWDER 17 GM PACK PO SCH (09:53)
[2020-01-11 10:12] LABS: Hematocrit 25.3 VOL% (35.7-47.0); Hemoglobin 7.7 GM/DL (12.0-16.0)
[2020-01-11] MEDS: FAMOTIDINE 20 MG TABLET PO SCH ×2 (10:55→21:12)
[2020-01-11] MEDS: cycloSPORINE OPH EMUL 1 VIAL BOTH EYES SCH ×2 (11:05→21:12)
[2020-01-11] MEDS: BRINZOLAMIDE 1% OPH SUSP 10 ML BOTTLE BOTH EYES SCH ×2 (11:05→21:12)
[2020-01-11] MEDS: BRIMONIDINE/TIMOLOL OPH SOLN 5 ML BOTTLE BOTH EYES SCH ×2 (11:05→21:12)
[2020-01-11] MEDS: risperiDONE 0.25 MG TABLET PO SCH (13:38)
[2020-01-11] MEDS: ENALAPRIL 10 MG TABLET PO SCH (13:38)
[2020-01-11 16:26] LABS: Hematocrit 24.7 VOL% (35.7-47.0); Hemoglobin 7.4 GM/DL (12.0-16.0)
[2020-01-11] MEDS ORDERED: CINACALCET 30 MG TABLET PO SCH (17:00)
[2020-01-11] MEDS ORDERED: NON-FORMULARY MEDICATION (Losartan 100 MG) PO SCH (21:00)
[2020-01-11] MEDS ORDERED: risperiDONE 1 MG TABLET PO SCH (21:00)
[2020-01-11] MEDS: ZALEPLON 5 MG CAPSULE PO SCH (21:12)
[2020-01-11] MEDS: TRAVOPROST 0.004% OPH SOLN 2.5 ML BOTTLE BOTH EYES SCH (21:12)
[2020-01-11 22:11] LABS: Hematocrit 23.1 VOL% (35.7-47.0)
[2020-01-12] MEDS: LEVOTHYROXINE 50 MCG TABLET PO SCH (05:21)
[2020-01-12] MEDS ORDERED: SODIUM CHLORIDE 0.9% 1,000 ML IV PRN (05:42)
[2020-01-12 06:14] LABS: Basophils % 0.5 % (0.0-0.8); Eosinophils # 0.4 10*3/uL (0.0-0.87); Eosinophils % 8.3 % (0.00-10.9); Hematocrit 26.8 VOL% (35.7-47.0); Immature Granulocytes % 0.5 %; Immature Granulocytes Absolute 0.02 #; Lymphocytes # 1.2 10*3/uL (1.4-4.0); Lymphocytes % 28.7 % (21.3-54.2); Mean Corpuscular HGB Conc 29.9 GM/DL (32-36); Mean Corpuscular Volume 93.4 FL (87-102); Mean Platelet Volume 11.9 FL (9.6-12.0); Monocytes % 11.8 % (1.7-12.7); Neutrophils % 50.2 % (38.7-73.9); Platelet Count 121 T/CUMM (130-400); Red Blood Count 2.87 MC/CUMM (3.8-5.5); Red Cell Distribution Width 20.4 % (9.3-17.3); White Blood Count 4.2 T/CUMM (4-12)
[2020-01-12 06:36] LABS: Hypochromasia 2+; Ovalocytes Few; Target Cells Slight
[2020-01-12 06:37] LABS: Microcytosis 1+; Platelet Estimate Adequate; Polychromasia Slight; Tear Drop Cells Slight
[2020-01-12 06:43] LABS: Calcium 8.2 MG/DL (8.5-10.1); Osmolality,Calculated 278.5 MOS/KG (273-304)
[2020-01-12] MEDS: cycloSPORINE OPH EMUL 1 VIAL BOTH EYES SCH ×3 (09:35→20:47)
[2020-01-12] MEDS: BRIMONIDINE/TIMOLOL OPH SOLN 5 ML BOTTLE BOTH EYES SCH ×2 (09:35→20:46)
[2020-01-12] MEDS: BRINZOLAMIDE 1% OPH SUSP 10 ML BOTTLE BOTH EYES SCH ×2 (09:35→20:46)
[2020-01-12] MEDS: carvediloL 12.5 MG TABLET PO SCH ×2 (10:35→18:12)
[2020-01-12] MEDS: ENALAPRIL 10 MG TABLET PO SCH (10:35)
[2020-01-12] MEDS: FAMOTIDINE 20 MG TABLET PO SCH ×2 (10:35→20:45)
[2020-01-12] MEDS: POLYETHYLENE GLYCOL POWDER 17 GM PACK PO SCH (10:35)
[2020-01-12] MEDS: risperiDONE 0.25 MG TABLET PO SCH (10:35)
[2020-01-12] MEDS: CYPROHEPTADINE 4 MG TABLET PO SCH (10:35)
[2020-01-12 12:59] LABS: Hepatitis B Core IgM Quant 0.15 Index; Hepatitis B Surface Ag Quant < 0.10 Index; Hepatitis B Surface Ag Result Negative (Negative); Hepatitis C Virus Ab Quant 0.09 Index; Hepatitis C Virus Ab Result Negative (Negative)
[2020-01-12 18:14] LABS: Hematocrit 37.2 VOL% (35.7-47.0); Hemoglobin 11.5 GM/DL (12.0-16.0)
[2020-01-12] MEDS: ZALEPLON 5 MG CAPSULE PO SCH (20:45)
[2020-01-12] MEDS: TRAVOPROST 0.004% OPH SOLN 2.5 ML BOTTLE BOTH EYES SCH (20:46)
[2020-01-13 03:23] LABS: Basophils % 0.3 % (0.0-0.8); Eosinophils # 0.1 10*3/uL (0.0-0.87); Eosinophils % 2.1 % (0.00-10.9); Hematocrit 30.6 VOL% (35.7-47.0); Hemoglobin 9.5 GM/DL (12.0-16.0); Immature Granulocytes % 0.3 %; Immature Granulocytes Absolute 0.02 #; Lymphocytes # 1.3 10*3/uL (1.4-4.0); Lymphocytes % 22.9 % (21.3-54.2); Mean Platelet Volume 11.5 FL (9.6-12.0); Monocytes % 10.2 % (1.7-12.7); Neutrophils % 64.2 % (38.7-73.9); Platelet Count 112 T/CUMM (130-400); Red Cell Distribution Width 19.2 % (9.3-17.3); White Blood Count 5.8 T/CUMM (4-12)
[2020-01-13] MEDS ORDERED: LIDOCAINE/PRILOCAINE CREAM 5 GM TUBE TOP SCH (04:04)
[2020-01-13] MEDS: LEVOTHYROXINE 50 MCG TABLET PO SCH (06:04)
[2020-01-13] MEDS ORDERED: SODIUM CHLORIDE 0.9% 500 ML IV ONE (07:23)
[2020-01-13 07:51] LABS: INR 1.3; PT Patient Result 13.5 SECS (9.8-11.9)
[2020-01-13 08:05] LABS: Calcium 8.2 MG/DL (8.5-10.1)
[2020-01-13] MEDS ORDERED: DOPamine 800 MG/250 ML PREMIX IV PRN (09:02)
[2020-01-13] MEDS ORDERED: PHENYLEPHRINE DRIP 40 MG/250 ML PREMIX IV PRN (09:02)
[2020-01-13] MEDS ORDERED: NOREPINEPHRINE 8 MG in SODIUM CHLORIDE 0.9% 242 ML IV PRN (09:02)
[2020-01-13 10:06] LABS: Basophils % 0.2 % (0.0-0.8); Eosinophils % 0.6 % (0.00-10.9); Hematocrit 28.4 VOL% (35.7-47.0); Hemoglobin 8.8 GM/DL (12.0-16.0); Immature Granulocytes % 0.2 %; Immature Granulocytes Absolute 0.01 #; Lymphocytes # 1.3 10*3/uL (1.4-4.0); Lymphocytes % 24.8 % (21.3-54.2); Mean Corpuscular Volume 90.2 FL (87-102); Mean Platelet Volume 12.8 FL (9.6-12.0); Monocytes % 10.1 % (1.7-12.7); Neutrophils % 64.1 % (38.7-73.9); Red Blood Count 3.15 MC/CUMM (3.8-5.5); Red Cell Distribution Width 19.2 % (9.3-17.3); White Blood Count 5.2 T/CUMM (4-12)
[2020-01-13 10:13] LABS: Platelet Count 72 T/CUMM (130-400)
[2020-01-13 10:23] LABS: Hypochromasia 2+; Microcytosis 1+; Ovalocytes Few
[2020-01-13 10:24] LABS: Platelet Estimate Decreased
[2020-01-13] MEDS: POLYETHYLENE GLYCOL POWDER 17 GM PACK PO SCH (14:52)
[2020-01-13] MEDS: BRINZOLAMIDE 1% OPH SUSP 10 ML BOTTLE BOTH EYES SCH ×2 (14:52→22:38)
[2020-01-13] MEDS: BRIMONIDINE/TIMOLOL OPH SOLN 5 ML BOTTLE BOTH EYES SCH ×2 (14:52→22:39)
[2020-01-13] MEDS: FAMOTIDINE 20 MG TABLET PO SCH ×2 (14:52→21:21)
[2020-01-13] MEDS: cycloSPORINE OPH EMUL 1 VIAL BOTH EYES SCH ×2 (14:53→21:21)
[2020-01-13] MEDS: risperiDONE 0.25 MG TABLET PO SCH (14:53)
[2020-01-13] MEDS: CYPROHEPTADINE 4 MG TABLET PO SCH (14:53)
[2020-01-13] MEDS: ENALAPRIL 10 MG TABLET PO SCH (14:53)
[2020-01-13] MEDS: carvediloL 12.5 MG TABLET PO SCH (14:53)
[2020-01-13 18:30] LABS: Basophils % 0.6 % (0.0-0.8); Eosinophils # 0.2 10*3/uL (0.0-0.87); Eosinophils % 4.6 % (0.00-10.9); Hematocrit 28.1 VOL% (35.7-47.0); Hemoglobin 8.4 GM/DL (12.0-16.0); Immature Granulocytes % 0.2 %; Immature Granulocytes Absolute 0.01 #; Lymphocytes # 1.7 10*3/uL (1.4-4.0); Mean Corpuscular HGB Conc 29.9 GM/DL (32-36); Mean Corpuscular Volume 93.4 FL (87-102); Mean Platelet Volume 10.8 FL (9.6-12.0); Monocytes % 16.5 % (1.7-12.7); Neutrophils % 43.1 % (38.7-73.9); Red Blood Count 3.01 MC/CUMM (3.8-5.5); Red Cell Distribution Width 19.4 % (9.3-17.3); White Blood Count 4.7 T/CUMM (4-12)
[2020-01-13 18:33] LABS: Platelet Count 98 T/CUMM (130-400)
[2020-01-13 19:00] LABS: Eosinophils 2 % (0-10); Lymphocytes 40 % (20-55); Segmented Neutrophils 45 % (50-85); Total Cells Counted 100
[2020-01-13 19:01] LABS: Anisocytosis 2+; Burr Cells Few; Macrocytosis 1+; Microcytosis 1+
[2020-01-13 19:02] LABS: Ovalocytes Few; Polychromasia Few
[2020-01-13 19:03] LABS: Platelet Estimate Adequate
[2020-01-13] MEDS: ZALEPLON 5 MG CAPSULE PO SCH (22:21)
[2020-01-13] MEDS: TRAVOPROST 0.004% OPH SOLN 2.5 ML BOTTLE BOTH EYES SCH (22:39)
[2020-01-14 03:07] LABS: Basophils % 0.6 % (0.0-0.8); Eosinophils # 0.2 10*3/uL (0.0-0.87); Eosinophils % 4.4 % (0.00-10.9); Hematocrit 25.7 VOL% (35.7-47.0); Hemoglobin 7.9 GM/DL (12.0-16.0); Immature Granulocytes % 0.2 %; Immature Granulocytes Absolute 0.01 #; Lymphocytes # 1.3 10*3/uL (1.4-4.0); Lymphocytes % 26.1 % (21.3-54.2); Mean Corpuscular HGB Conc 30.7 GM/DL (32-36); Mean Corpuscular Volume 90.5 FL (87-102); Mean Platelet Volume 11.1 FL (9.6-12.0); Monocytes % 14.7 % (1.7-12.7); Platelet Count 121 T/CUMM (130-400); Red Blood Count 2.84 MC/CUMM (3.8-5.5); Red Cell Distribution Width 18.4 % (9.3-17.3)
[2020-01-14 03:51] LABS: Eosinophils 6 % (0-10); Lymphocytes 24 % (20-55); Nucleated Red Blood Cells 2 (0-5); Segmented Neutrophils 59 % (50-85); Total Cells Counted 100
[2020-01-14 03:52] LABS: Anisocytosis 1+; Hypochromasia 1+; Platelet Estimate Adequate; Target Cells 1+
[2020-01-14 03:57] LABS: Calcium 8.3 MG/DL (8.5-10.1); Osmolality,Calculated 273.8 MOS/KG (273-304)
[2020-01-14] MEDS: LEVOTHYROXINE 50 MCG TABLET PO SCH (05:59)
[2020-01-14] MEDS: risperiDONE 0.25 MG TABLET PO SCH (08:09)
[2020-01-14] MEDS: CYPROHEPTADINE 4 MG TABLET PO SCH (08:09)
[2020-01-14] MEDS: FAMOTIDINE 20 MG TABLET PO SCH (08:09)
[2020-01-14] MEDS: POLYETHYLENE GLYCOL POWDER 17 GM PACK PO SCH (08:10)
[2020-01-14] MEDS: cycloSPORINE OPH EMUL 1 VIAL BOTH EYES SCH ×2 (10:02→23:00)
[2020-01-14] MEDS: BRINZOLAMIDE 1% OPH SUSP 10 ML BOTTLE BOTH EYES SCH ×2 (10:02→23:00)
[2020-01-14] MEDS: BRIMONIDINE/TIMOLOL OPH SOLN 5 ML BOTTLE BOTH EYES SCH ×2 (10:02→23:00)
[2020-01-14] MEDS: ZALEPLON 5 MG CAPSULE PO SCH (22:02)
[2020-01-15] MEDS: TRAVOPROST 0.004% OPH SOLN 2.5 ML BOTTLE BOTH EYES SCH ×2 (00:13→21:17)
[2020-01-15] MEDS ORDERED: LIDOCAINE/PRILOCAINE CREAM 5 GM TUBE TOP SCH (02:30)
[2020-01-15] MEDS: LEVOTHYROXINE 50 MCG TABLET PO SCH (06:22)
[2020-01-15 08:15] LABS: Hematocrit 21.8 VOL% (35.7-47.0); Hemoglobin 6.7 GM/DL (12.0-16.0)
[2020-01-15] MEDS: BRIMONIDINE/TIMOLOL OPH SOLN 5 ML BOTTLE BOTH EYES SCH ×2 (09:22→21:16)
[2020-01-15] MEDS: BRINZOLAMIDE 1% OPH SUSP 10 ML BOTTLE BOTH EYES SCH ×2 (09:22→21:16)
[2020-01-15] MEDS: CYPROHEPTADINE 4 MG TABLET PO SCH (09:23)
[2020-01-15] MEDS: cycloSPORINE OPH EMUL 1 VIAL BOTH EYES SCH ×2 (09:23→21:16)
[2020-01-15] MEDS: risperiDONE 0.25 MG TABLET PO SCH (09:23)
[2020-01-15] MEDS: FAMOTIDINE 20 MG TABLET PO SCH (09:23)
[2020-01-15] MEDS: POLYETHYLENE GLYCOL POWDER 17 GM PACK PO SCH (09:23)
[2020-01-15] MEDS ORDERED: SODIUM CHLORIDE 0.9% 1,000 ML IV PRN (10:01)
[2020-01-15 18:50] LABS: Hematocrit 30.9 VOL% (35.7-47.0)
[2020-01-15] MEDS: ZALEPLON 5 MG CAPSULE PO SCH (21:15)
[2020-01-16] MEDS: LEVOTHYROXINE 50 MCG TABLET PO SCH (06:04)
[2020-01-16 06:33] LABS: Basophils % 0.2 % (0.0-0.8); Eosinophils # 0.4 10*3/uL (0.0-0.87); Eosinophils % 7.7 % (0.00-10.9); Hemoglobin 10.1 GM/DL (12.0-16.0); Immature Granulocytes % 0.2 %; Immature Granulocytes Absolute 0.01 #; Lymphocytes # 1.4 10*3/uL (1.4-4.0); Mean Corpuscular HGB Conc 31.6 GM/DL (32-36); Mean Corpuscular Volume 90.4 FL (87-102); Mean Platelet Volume 12.9 FL (9.6-12.0); Monocytes % 13.9 % (1.7-12.7); Red Blood Count 3.54 MC/CUMM (3.8-5.5); Red Cell Distribution Width 17.1 % (9.3-17.3); White Blood Count 4.8 T/CUMM (4-12)
[2020-01-16 06:36] LABS: Platelet Count 93 T/CUMM (130-400)
[2020-01-16 06:55] LABS: Calcium 7.8 MG/DL (8.5-10.1); Osmolality,Calculated 283.1 MOS/KG (273-304)
[2020-01-16 07:21] LABS: Hypochromasia 1+; Platelet Estimate Decreased
[2020-01-16 07:22] LABS: Microcytosis 1+
[2020-01-16] MEDS ORDERED: LACTATED RINGERS 1,000 ML IV SCH (08:00)
[2020-01-16] MEDS: BRINZOLAMIDE 1% OPH SUSP 10 ML BOTTLE BOTH EYES SCH ×2 (08:45→21:19)
[2020-01-16] MEDS: BRIMONIDINE/TIMOLOL OPH SOLN 5 ML BOTTLE BOTH EYES SCH ×2 (08:45→21:19)
[2020-01-16] MEDS: cycloSPORINE OPH EMUL 1 VIAL BOTH EYES SCH ×2 (08:45→21:19)
[2020-01-16] MEDS ORDERED: ETOMIDATE 20 MG/10 ML VIAL IV ONE (10:00)
[2020-01-16] MEDS ORDERED: LIDOCAINE 2% 5 ML VIAL ONE (10:00)
[2020-01-16] MEDS ORDERED: MIDAZOLAM 2 MG/2 ML VIAL ONE (10:50)
[2020-01-16] MEDS: POLYETHYLENE GLYCOL POWDER 17 GM PACK PO SCH (12:08)
[2020-01-16] MEDS: CYPROHEPTADINE 4 MG TABLET PO SCH (12:08)
[2020-01-16] MEDS: risperiDONE 0.25 MG TABLET PO SCH ×2 (12:08→22:57)
[2020-01-16] MEDS: FAMOTIDINE 20 MG TABLET PO SCH (12:08)
[2020-01-16] MEDS: TRAVOPROST 0.004% OPH SOLN 2.5 ML BOTTLE BOTH EYES SCH (21:19)
[2020-01-16] MEDS: ZALEPLON 5 MG CAPSULE PO SCH (21:20)
[2020-01-17 04:17] VITALS: BP 138/50
[2020-01-17] MEDS: LEVOTHYROXINE 50 MCG TABLET PO SCH (05:35)
[2020-01-17 08:30] LABS: Basophils % 0.5 % (0.0-0.8); Eosinophils # 0.6 10*3/uL (0.0-0.87); Eosinophils % 13.8 % (0.00-10.9); Hematocrit 33.8 VOL% (35.7-47.0); Hemoglobin 10.6 GM/DL (12.0-16.0); Immature Granulocytes % 0.2 %; Immature Granulocytes Absolute 0.01 #; Lymphocytes # 1.3 10*3/uL (1.4-4.0); Lymphocytes % 31.1 % (21.3-54.2); Mean Corpuscular HGB Conc 31.4 GM/DL (32-36); Mean Corpuscular Volume 91.1 FL (87-102); Mean Platelet Volume 10.4 FL (9.6-12.0); Monocytes % 13.6 % (1.7-12.7); Neutrophils % 40.8 % (38.7-73.9); Platelet Count 109 T/CUMM (130-400); Red Blood Count 3.71 MC/CUMM (3.8-5.5); Red Cell Distribution Width 17.5 % (9.3-17.3); White Blood Count 4.1 T/CUMM (4-12)
[2020-01-17 09:11] LABS: Eosinophils 16 % (0-10); Hypochromasia 2+; Lymphocytes 31 % (20-55); Polychromasia Slight; Segmented Neutrophils 41 % (50-85); Total Cells Counted 100
[2020-01-17 09:12] LABS: Microcytosis 1+; Platelet Estimate Decreased
[2020-01-17] MEDS: FAMOTIDINE 20 MG TABLET PO SCH (09:36)
[2020-01-17] MEDS: CYPROHEPTADINE 4 MG TABLET PO SCH (09:36)
[2020-01-17] MEDS: risperiDONE 0.25 MG TABLET PO SCH (09:36)
[2020-01-17] MEDS: BRINZOLAMIDE 1% OPH SUSP 10 ML BOTTLE BOTH EYES SCH (09:37)
[2020-01-17] MEDS: cycloSPORINE OPH EMUL 1 VIAL BOTH EYES SCH (09:37)
[2020-01-17] MEDS: BRIMONIDINE/TIMOLOL OPH SOLN 5 ML BOTTLE BOTH EYES SCH (09:37)
[2020-01-17] MEDS: POLYETHYLENE GLYCOL POWDER 17 GM PACK PO SCH (09:44)
== END 2020-01-17 11:44 | disposition home or self-care (01) | DRG 377 ==
LOC: N.ED 01:50 → N.EDINP 01:50 → N.2E 04:50 → N.TELES 05:20 → SUATTDRO 01-13 08:44 → N.ICU 01-13 08:59 → N.3E 01-14 17:26
PROVIDERS: ADMIT Hospitalist; ATTEND Internal Medicine

== ENCOUNTER 2020-03-23 12:38 | Inpatient (IN) ==
[2020-03-23] MEDS ORDERED: SODIUM CHLORIDE 0.9% 1,000 ML IV STA (13:30)
[2020-03-23] MEDS ORDERED: SODIUM CHLORIDE 0.9% 500 ML IV STA (13:32)
[2020-03-23 14:44] LABS: Basophils % 0.5 % (0.0-0.8); Eosinophils # 0.1 10*3/uL (0.0-0.87); Eosinophils % 2.1 % (0.00-10.9); Hematocrit 35.8 VOL% (35.7-47.0); Hemoglobin 11.3 GM/DL (12.0-16.0); Immature Granulocytes % 0.2 %; Immature Granulocytes Absolute 0.01 #; Lymphocytes # 0.9 10*3/uL (1.4-4.0); Mean Corpuscular HGB Conc 31.6 GM/DL (32-36); Mean Platelet Volume 11.7 FL (9.6-12.0); Monocytes % 15.2 % (1.7-12.7); Platelet Count 108 T/CUMM (130-400); Red Blood Count 3.81 MC/CUMM (3.8-5.5); Red Cell Distribution Width 16.2 % (9.3-17.3); White Blood Count 4.3 T/CUMM (4-12)
[2020-03-23 15:01] LABS: INR 1.3; PT Patient Result 13.5 SECS (9.8-11.9)
[2020-03-23 15:17] LABS: Alanine Aminotransferase < 6 U/L (13-56); Albumin 1.9 G/DL (3.4-5.0); Alkaline Phosphatase 65 U/L (45-117); Aspartate Amino Transferase 8 U/L (0-37); Blood Urea Nitrogen 7 MG/DL (7-18); Calcium 7.8 MG/DL (8.5-10.1); Estimated Glom Filtration Rate 13 ML/MIN; Glucose 63 MG/DL (74-106); Osmolality,Calculated 281.8 MOS/KG (273-304); Total Protein 4.4 G/DL (6.4-8.3)
[2020-03-23] MEDS ORDERED: GLUCAGON 1 MG VIAL IM PRN (17:17)
[2020-03-23] MEDS ORDERED: ONDANSETRON 4 MG/2 ML VIAL IV PRN (17:17)
[2020-03-23] MEDS ORDERED: DEXTROSE 50% 25 GM/50 ML VIAL IV PRN (17:17)
[2020-03-23] MEDS ORDERED: ALBUTEROL 2.5 MG/3 ML NEB RESP TX PRN (17:39)
[2020-03-23] MEDS: TRAVOPROST 0.004% OPH SOLN 2.5 ML BOTTLE BOTH EYES SCH (20:30)
[2020-03-23] MEDS: BRIMONIDINE/TIMOLOL OPH SOLN 5 ML BOTTLE BOTH EYES SCH (20:30)
[2020-03-23] MEDS: cycloSPORINE OPH EMUL 1 VIAL BOTH EYES SCH (20:30)
[2020-03-23] MEDS: BRINZOLAMIDE 1% OPH SUSP 10 ML BOTTLE BOTH EYES SCH (20:30)
[2020-03-23] MEDS: AZITHROMYCIN INJ 500 MG in SODIUM CHLORIDE 0.9% 250 ML IV SCH (20:31)
[2020-03-23] MEDS: ZALEPLON 5 MG CAPSULE PO SCH (20:31)
[2020-03-23] MEDS: FAMOTIDINE 20 MG TABLET PO SCH (20:31)
[2020-03-23] MEDS: risperiDONE 1 MG TABLET PO SCH (20:31)
[2020-03-23 20:37] LABS: Hematocrit 28.8 VOL% (35.7-47.0); Hemoglobin 9.2 GM/DL (12.0-16.0)
[2020-03-24 03:38] LABS: Calcium 8.8 MG/DL (8.5-10.1); Osmolality,Calculated 275.4 MOS/KG (273-304)
[2020-03-24 04:41] LABS: Hematocrit 24.8 VOL% (35.7-47.0); Hemoglobin 7.9 GM/DL (12.0-16.0)
[2020-03-24 05:42] LABS: Basophils % 0.3 % (0.0-0.8); Eosinophils # 0.1 10*3/uL (0.0-0.87); Eosinophils % 4.7 % (0.00-10.9); Hematocrit 23.6 VOL% (35.7-47.0); Hemoglobin 7.6 GM/DL (12.0-16.0); Lymphocytes # 0.8 10*3/uL (1.4-4.0); Lymphocytes % 25.3 % (21.3-54.2); Mean Corpuscular HGB Conc 32.2 GM/DL (32-36); Mean Corpuscular Volume 92.2 FL (87-102); Mean Platelet Volume 12.5 FL (9.6-12.0); Monocytes % 13.9 % (1.7-12.7); Neutrophils % 55.8 % (38.7-73.9); Platelet Count 87 T/CUMM (130-400); Red Blood Count 2.56 MC/CUMM (3.8-5.5); Red Cell Distribution Width 15.9 % (9.3-17.3)
[2020-03-24 06:18] LABS: Hypochromasia 2+; Microcytosis Slight; Ovalocytes Slight; Platelet Estimate Decreased
[2020-03-24] MEDS: LEVOTHYROXINE 50 MCG TABLET PO SCH (06:43)
[2020-03-24] MEDS ORDERED: SODIUM CHLORIDE 0.9% 1,000 ML IV PRN (07:19)
[2020-03-24 08:08] LABS: Hematocrit 24.2 VOL% (35.7-47.0); Hemoglobin 7.6 GM/DL (12.0-16.0)
[2020-03-24] MEDS: BRIMONIDINE/TIMOLOL OPH SOLN 5 ML BOTTLE BOTH EYES SCH ×2 (09:05→22:27)
[2020-03-24] MEDS: cycloSPORINE OPH EMUL 1 VIAL BOTH EYES SCH ×2 (09:06→22:28)
[2020-03-24] MEDS: BRINZOLAMIDE 1% OPH SUSP 10 ML BOTTLE BOTH EYES SCH ×2 (09:06→22:29)
[2020-03-24] MEDS: ENALAPRIL 10 MG TABLET PO PRN (09:07)
[2020-03-24] MEDS: CYPROHEPTADINE 4 MG TABLET PO SCH (09:07)
[2020-03-24] MEDS: FAMOTIDINE 20 MG TABLET PO SCH ×2 (09:07→22:29)
[2020-03-24] MEDS: ONDANSETRON 4 MG TABLET PO PRN (09:07)
[2020-03-24] MEDS: carvediloL 12.5 MG TABLET PO PRN (09:07)
[2020-03-24 17:44] LABS: Hematocrit 33.9 VOL% (35.7-47.0); Hemoglobin 11.1 GM/DL (12.0-16.0)
[2020-03-24] MEDS: AZITHROMYCIN INJ 500 MG in SODIUM CHLORIDE 0.9% 250 ML IV SCH (22:25)
[2020-03-24] MEDS: TRAVOPROST 0.004% OPH SOLN 2.5 ML BOTTLE BOTH EYES SCH (22:26)
[2020-03-24] MEDS: risperiDONE 1 MG TABLET PO SCH (22:29)
[2020-03-24] MEDS: ZALEPLON 5 MG CAPSULE PO SCH (23:12)
[2020-03-25 05:36] LABS: Basophils % 0.3 % (0.0-0.8); Eosinophils # 0.2 10*3/uL (0.0-0.87); Eosinophils % 4.3 % (0.00-10.9); Hematocrit 32.4 VOL% (35.7-47.0); Hemoglobin 10.3 GM/DL (12.0-16.0); Immature Granulocytes % 0.3 %; Immature Granulocytes Absolute 0.01 #; Lymphocytes # 0.9 10*3/uL (1.4-4.0); Lymphocytes % 25.3 % (21.3-54.2); Mean Corpuscular HGB Conc 31.8 GM/DL (32-36); Mean Corpuscular Volume 90.5 FL (87-102); Mean Platelet Volume 11.9 FL (9.6-12.0); Monocytes % 13.7 % (1.7-12.7); Neutrophils % 56.1 % (38.7-73.9); Platelet Count 85 T/CUMM (130-400); Red Blood Count 3.58 MC/CUMM (3.8-5.5); Red Cell Distribution Width 15.7 % (9.3-17.3); White Blood Count 3.7 T/CUMM (4-12)
[2020-03-25] MEDS: LEVOTHYROXINE 50 MCG TABLET PO SCH (05:46)
[2020-03-25 05:47] LABS: Osmolality,Calculated 271.7 MOS/KG (273-304)
[2020-03-25 05:57] LABS: Hypochromasia 1+; Microcytosis Slight; Platelet Estimate Decreased
[2020-03-25] MEDS ORDERED: LIDOCAINE/PRILOCAINE CREAM 5 GM TUBE TOP SCH (09:00)
[2020-03-25] MEDS: ONDANSETRON 4 MG TABLET PO PRN (09:24)
[2020-03-25] MEDS: ENALAPRIL 10 MG TABLET PO PRN (09:24)
[2020-03-25] MEDS: CYPROHEPTADINE 4 MG TABLET PO SCH (09:24)
[2020-03-25] MEDS: FAMOTIDINE 20 MG TABLET PO SCH ×2 (09:24→20:58)
[2020-03-25] MEDS: carvediloL 12.5 MG TABLET PO PRN ×2 (09:25→20:58)
[2020-03-25] MEDS: BRIMONIDINE/TIMOLOL OPH SOLN 5 ML BOTTLE BOTH EYES SCH ×2 (09:25→21:57)
[2020-03-25] MEDS: BRINZOLAMIDE 1% OPH SUSP 10 ML BOTTLE BOTH EYES SCH ×2 (09:25→20:58)
[2020-03-25] MEDS: cycloSPORINE OPH EMUL 1 VIAL BOTH EYES SCH ×2 (09:26→20:58)
[2020-03-25] MEDS: AZITHROMYCIN INJ 500 MG in SODIUM CHLORIDE 0.9% 250 ML IV SCH (20:49)
[2020-03-25] MEDS: risperiDONE 1 MG TABLET PO SCH (20:58)
[2020-03-25] MEDS: TRAVOPROST 0.004% OPH SOLN 2.5 ML BOTTLE BOTH EYES SCH (20:58)
[2020-03-25] MEDS: ZALEPLON 5 MG CAPSULE PO SCH (20:58)
[2020-03-26] MEDS: LEVOTHYROXINE 50 MCG TABLET PO SCH (05:59)
[2020-03-26] MEDS: POTASSIUM CHLORIDE RIDER 10 MEQ in PREMIX 1 EACH IV PRN ×2 (06:54→12:44)
[2020-03-26 07:56] VITALS: BP 146/54
[2020-03-26] MEDS: FAMOTIDINE 20 MG TABLET PO SCH (08:23)
[2020-03-26] MEDS: BRINZOLAMIDE 1% OPH SUSP 10 ML BOTTLE BOTH EYES SCH (08:23)
[2020-03-26] MEDS: BRIMONIDINE/TIMOLOL OPH SOLN 5 ML BOTTLE BOTH EYES SCH (08:23)
[2020-03-26] MEDS: CYPROHEPTADINE 4 MG TABLET PO SCH (08:24)
[2020-03-26] MEDS: cycloSPORINE OPH EMUL 1 VIAL BOTH EYES SCH (08:24)
[2020-03-26 08:36] LABS: Basophils % 0.3 % (0.0-0.8); Eosinophils # 0.2 10*3/uL (0.0-0.87); Eosinophils % 5.2 % (0.00-10.9); Hematocrit 30.2 VOL% (35.7-47.0); Hemoglobin 9.6 GM/DL (12.0-16.0); Immature Granulocytes % 0.3 %; Immature Granulocytes Absolute 0.01 #; Lymphocytes # 0.8 10*3/uL (1.4-4.0); Lymphocytes % 25.5 % (21.3-54.2); Mean Corpuscular HGB Conc 31.8 GM/DL (32-36); Mean Corpuscular Volume 92.9 FL (87-102); Mean Platelet Volume 11.6 FL (9.6-12.0); Monocytes % 11.6 % (1.7-12.7); NRBC # 0.02 10*3/uL; Neutrophils % 57.1 % (38.7-73.9); Platelet Count 91 T/CUMM (130-400); Red Blood Count 3.25 MC/CUMM (3.8-5.5); Red Cell Distribution Width 15.9 % (9.3-17.3); White Blood Count 3.1 T/CUMM (4-12)
[2020-03-26 08:55] LABS: Calcium 9.1 MG/DL (8.5-10.1)
[2020-03-26 09:06] LABS: Platelet Estimate Decreased
[2020-03-26 09:07] LABS: Anisocytosis 2+; Macrocytosis 1+; Poikilocytosis Slight; Polychromasia Slight
== END 2020-03-26 16:55 | disposition home health service (06) | DRG 377 ==
LOC: N.ED 12:38 → N.EDINP 17:17 → N.3E 19:31
PROVIDERS: ADMIT Internal Medicine; ATTEND Internal Medicine

== ENCOUNTER 2020-06-18 17:46 | Observation (INO) ==
[2020-06-18] MEDS ORDERED: LIDOCAINE 1%/EPI INJ 20 ML VIAL ONE (18:19)
[2020-06-18 19:30] LABS: Basophils % 0.5 % (0.0-0.8); Eosinophils % 1.5 % (0.00-10.9); Hematocrit 29.4 VOL% (35.7-47.0); Hemoglobin 9.9 GM/DL (12.0-16.0); Immature Granulocytes % 0.5 %; Immature Granulocytes Absolute 0.01 #; Lymphocytes # 0.8 10*3/uL (1.4-4.0); Mean Corpuscular HGB Conc 33.7 GM/DL (32-36); Mean Corpuscular Volume 89.6 FL (87-102); Monocytes % 10.5 % (1.7-12.7); Platelet Count 59 T/CUMM (130-400); Red Blood Count 3.28 MC/CUMM (3.8-5.5); Red Cell Distribution Width 23.7 % (9.3-17.3)
[2020-06-18 20:04] LABS: Calcium 8.6 MG/DL (8.5-10.1); Osmolality,Calculated 273.4 MOS/KG (273-304)
[2020-06-18] MEDS ORDERED: GLUCAGON 1 MG VIAL IM PRN (20:58)
[2020-06-18] MEDS ORDERED: BISACODYL 5 MG TABLET PO PRN (20:58)
[2020-06-18] MEDS ORDERED: DEXTROSE 50% 25 GM/50 ML VIAL IV PRN (20:58)
[2020-06-18] MEDS ORDERED: DOCUSATE SODIUM 100 MG CAPSULE PO PRN (20:58)
[2020-06-18] MEDS ORDERED: ONDANSETRON 4 MG/2 ML VIAL IV PRN (20:58)
[2020-06-18] MEDS: SODIUM CHLORIDE 0.9% 500 ML IV SCH ×3 (21:30→23:26)
[2020-06-18] MEDS ORDERED: QUEtiapine 25 MG TABLET PO SCH (22:00)
[2020-06-18] MEDS ORDERED: risperiDONE 0.5 MG TABLET PO SCH (22:30)
[2020-06-18 23:36] LABS: Basophils % 0.5 % (0.0-0.8); Hematocrit 25.6 VOL% (35.7-47.0); Hemoglobin 8.8 GM/DL (12.0-16.0); Immature Granulocytes % 0.5 %; Immature Granulocytes Absolute 0.01 #; Lymphocytes # 0.4 10*3/uL (1.4-4.0); Lymphocytes % 20.1 % (21.3-54.2); Mean Corpuscular HGB Conc 34.4 GM/DL (32-36); Mean Corpuscular Volume 87.4 FL (87-102); Neutrophils % 66.9 % (38.7-73.9); Platelet Count 62 T/CUMM (130-400); Red Blood Count 2.93 MC/CUMM (3.8-5.5); White Blood Count 2.1 T/CUMM (4-12)
[2020-06-19 00:31] LABS: Hypochromasia 1+; Microcytosis Slight; Platelet Estimate Decreased
[2020-06-19 00:48] LABS: Hepatitis C Virus Ab Quant 0.09 Index; Hepatitis C Virus Ab Result Negative (Negative)
[2020-06-19] MEDS ORDERED: ALBUTEROL 2.5 MG/3 ML NEB RESP TX PRN (01:00)
[2020-06-19] MEDS: BRINZOLAMIDE 1% OPH SUSP 10 ML BOTTLE BOTH EYES SCH ×2 (01:06→10:30)
[2020-06-19] MEDS: BRIMONIDINE/TIMOLOL OPH SOLN 5 ML BOTTLE BOTH EYES SCH ×2 (01:07→10:30)
[2020-06-19] MEDS: SODIUM CHLORIDE 0.9% 500 ML IV SCH ×8 (01:42→14:39)
[2020-06-19 01:44] LABS: Basophils % 0.4 % (0.0-0.8); Hematocrit 29.1 VOL% (35.7-47.0); Hemoglobin 9.8 GM/DL (12.0-16.0); Immature Granulocytes % 0.4 %; Immature Granulocytes Absolute 0.01 #; Lymphocytes # 0.5 10*3/uL (1.4-4.0); Lymphocytes % 23.1 % (21.3-54.2); Mean Corpuscular HGB Conc 33.7 GM/DL (32-36); Mean Corpuscular Volume 89.5 FL (87-102); Monocytes % 10.7 % (1.7-12.7); Neutrophils % 65.4 % (38.7-73.9); Platelet Count 57 T/CUMM (130-400); Red Blood Count 3.25 MC/CUMM (3.8-5.5); Red Cell Distribution Width 23.8 % (9.3-17.3); White Blood Count 2.3 T/CUMM (4-12)
[2020-06-19 02:16] LABS: Calcium 8.8 MG/DL (8.5-10.1); Osmolality,Calculated 269.7 MOS/KG (273-304)
[2020-06-19 02:23] LABS: Partial Thromboplastin Time 33.5 SECS (23.9-33.8)
[2020-06-19 02:26] LABS: PT Patient Result 18.2 SECS (9.8-11.9)
[2020-06-19 02:27] LABS: INR 1.8
[2020-06-19] MEDS ORDERED: LEVOTHYROXINE 50 MCG TABLET PO SCH (06:00)
[2020-06-19] MEDS ORDERED: carvediloL 12.5 MG TABLET PO SCH (08:00)
[2020-06-19] MEDS ORDERED: FAMOTIDINE 20 MG TABLET PO SCH (09:00)
[2020-06-19] MEDS ORDERED: cycloSPORINE OPH EMUL 1 VIAL BOTH EYES SCH (09:00)
[2020-06-19] MEDS ORDERED: FOLIC ACID 1 MG TABLET PO SCH (09:00)
[2020-06-19] MEDS ORDERED: CYPROHEPTADINE 4 MG TABLET PO SCH (09:00)
[2020-06-19] MEDS ORDERED: ENALAPRIL 10 MG TABLET PO SCH (09:00)
[2020-06-19 12:16] VITALS: BP 117/69
[2020-06-19 13:52] LABS: Hematocrit 26.5 VOL% (35.7-47.0); Hemoglobin 8.9 GM/DL (12.0-16.0)
== END 2020-06-19 15:20 | disposition home or self-care (01) ==
LOC: EDUNIT# → N.ED 17:46 → N.EDINP 17:46 → N.TELES 21:31
PROVIDERS: ADMIT Internal Medicine; ATTEND Internal Medicine

== ENCOUNTER 2020-06-23 05:47 | Inpatient (IN) ==
[2020-06-23] MEDS ORDERED: ceFAZolin 1,000 MG in SYRINGE 1 EACH IV ONE (06:00)
[2020-06-23] MEDS ORDERED: BUPIVACAINE MPF 0.25% 30 ML VIAL ONE (06:15)
[2020-06-23] MEDS ORDERED: LIDOCAINE 1%/EPI INJ 20 ML VIAL ONE (06:16)
[2020-06-23] MEDS ORDERED: HEPARIN 5,000 UNIT/1 ML VIAL ONE (06:16)
[2020-06-23] MEDS ORDERED: fentaNYL 100 MCG/2 ML VIAL ONE (06:50)
[2020-06-23] MEDS ORDERED: MIDAZOLAM 2 MG/2 ML VIAL ONE (06:51)
[2020-06-23 07:41] LABS: Calcium 8.7 MG/DL (8.5-10.1); Osmolality,Calculated 301.7 MOS/KG (273-304)
[2020-06-23 07:45] LABS: Hematocrit 22.9 VOL% (35.7-47.0); Hemoglobin 7.9 GM/DL (12.0-16.0); Immature Granulocytes % 0.5 %; Immature Granulocytes Absolute 0.02 #; Lymphocytes # 0.6 10*3/uL (1.4-4.0); Lymphocytes % 12.9 % (21.3-54.2); Mean Corpuscular HGB Conc 34.5 GM/DL (32-36); Mean Corpuscular Volume 91.6 FL (87-102); Monocytes % 9.3 % (1.7-12.7); NRBC # 0.03 10*3/uL; Neutrophils % 77.3 % (38.7-73.9); Red Cell Distribution Width 25.4 % (9.3-17.3); White Blood Count 4.3 T/CUMM (4-12)
[2020-06-23 07:46] LABS: Platelet Count 57 T/CUMM (130-400)
[2020-06-23] MEDS ORDERED: ONDANSETRON 4 MG/2 ML VIAL IV PRN (07:51)
[2020-06-23] MEDS ORDERED: ALBUTEROL 2.5 MG/3 ML NEB RESP TX PRN ×2 (07:51→13:00)
[2020-06-23] MEDS ORDERED: GLUCAGON 1 MG VIAL IM PRN (07:54)
[2020-06-23] MEDS ORDERED: HEPARIN 5,000 UNIT/1 ML VIAL SUBCUT SCH ×2 (08:00→16:00)
[2020-06-23 08:12] LABS: Target Cells Few
[2020-06-23 08:13] LABS: Anisocytosis 1+; Hypochromasia 1+; Microcytosis 1+; Ovalocytes Slight; Platelet Estimate Decreased; Tear Drop Cells Slight
[2020-06-23 08:31] LABS: ABG Base Excess 6.4 MMOL/L (-2.5-2.5); ABG HCO3 30.8 MMOL/L (20-26); ABG Oxygen Saturation 98.7 % (95-100); ABG PCO2 43.8 MM HG (35-48); ABG PH 7.465 (7.35-7.45); ABG PO2 132.3 MM HG (80-95); ABG TCO2 32.1 MMOL/L (23-27)
[2020-06-23] MEDS: FAMOTIDINE 20 MG/2 ML VIAL IV SCH ×2 (10:14→20:02)
[2020-06-23] MEDS: cycloSPORINE OPH EMUL 1 VIAL BOTH EYES SCH ×2 (13:12→20:03)
[2020-06-23] MEDS ORDERED: HEPARIN 10,000 UNIT/10 ML VIAL IV PRN (15:29)
[2020-06-23 16:58] LABS: Eosinophils % 0.2 % (0.00-10.9); Hematocrit 23.3 VOL% (35.7-47.0); Immature Granulocytes % 0.4 %; Immature Granulocytes Absolute 0.02 #; Lymphocytes # 0.6 10*3/uL (1.4-4.0); Lymphocytes % 12.1 % (21.3-54.2); Mean Corpuscular HGB Conc 34.3 GM/DL (32-36); Mean Corpuscular Volume 90.7 FL (87-102); Monocytes % 10.6 % (1.7-12.7); NRBC # 0.03 10*3/uL; Neutrophils % 76.7 % (38.7-73.9); Red Blood Count 2.57 MC/CUMM (3.8-5.5); Red Cell Distribution Width 25.6 % (9.3-17.3); White Blood Count 4.5 T/CUMM (4-12)
[2020-06-23 16:59] LABS: Platelet Count 47 T/CUMM (130-400)
[2020-06-23 17:46] LABS: Hypochromasia 1+; Schistocytes Few; Target Cells 1+
[2020-06-23 17:47] LABS: Anisocytosis 1+; Burr Cells Few; Platelet Estimate Decreased; Polychromasia Few
[2020-06-23] MEDS: DEXTROSE 50% 25 GM/50 ML VIAL IV PRN (18:48)
[2020-06-24 02:34] LABS: Basophils % 0.3 % (0.0-0.8); Eosinophils % 1.1 % (0.00-10.9); Hematocrit 26.2 VOL% (35.7-47.0); Hemoglobin 8.9 GM/DL (12.0-16.0); Immature Granulocytes % 0.3 %; Immature Granulocytes Absolute 0.01 #; Lymphocytes # 0.6 10*3/uL (1.4-4.0); Lymphocytes % 17.4 % (21.3-54.2); Mean Corpuscular Volume 91.9 FL (87-102); Monocytes % 9.1 % (1.7-12.7); Neutrophils % 71.8 % (38.7-73.9); Red Blood Count 2.85 MC/CUMM (3.8-5.5); Red Cell Distribution Width 25.3 % (9.3-17.3); White Blood Count 3.5 T/CUMM (4-12)
[2020-06-24 02:38] LABS: Platelet Count 40 T/CUMM (130-400)
[2020-06-24 02:59] LABS: % Iron Saturation 84.1 % (18-50); Albumin 1.7 G/DL (3.4-5.0); Bilirubin,Total 0.9 MG/DL (0.2-1.0); Calcium 9.4 MG/DL (8.5-10.1); Ferritin 648.9 ng/ml (8-252); Osmolality,Calculated 283.8 MOS/KG (273-304); Total Protein 5.2 G/DL (6.4-8.3)
[2020-06-24 04:01] LABS: Hypochromasia 1+; Platelet Estimate Decreased
[2020-06-24] MEDS: DEXTROSE 50% 25 GM/50 ML VIAL IV PRN ×2 (05:13→17:47)
[2020-06-24] MEDS: LEVOTHYROXINE 50 MCG TABLET PO SCH (05:13)
[2020-06-24] MEDS: cycloSPORINE OPH EMUL 1 VIAL BOTH EYES SCH ×2 (08:12→21:04)
[2020-06-24] MEDS: FAMOTIDINE 20 MG/2 ML VIAL IV SCH (08:15)
[2020-06-24] MEDS: FOLIC ACID 1 MG TABLET PO SCH (10:28)
[2020-06-24] MEDS: DEXTROSE 5% LACTATED RINGERS 1,000 ML IV SCH (19:25)
[2020-06-25 05:38] LABS: Eosinophils # 0.1 10*3/uL (0.0-0.87); Eosinophils % 1.4 % (0.00-10.9); Hematocrit 22.9 VOL% (35.7-47.0); Hemoglobin 7.8 GM/DL (12.0-16.0); Immature Granulocytes % 1.2 %; Immature Granulocytes Absolute 0.04 #; Lymphocytes # 0.4 10*3/uL (1.4-4.0); Lymphocytes % 11.2 % (21.3-54.2); Mean Corpuscular HGB Conc 34.1 GM/DL (32-36); Mean Corpuscular Volume 90.9 FL (87-102); Monocytes % 9.8 % (1.7-12.7); NRBC # 0.03 10*3/uL; Neutrophils % 76.4 % (38.7-73.9); Platelet Count 46 T/CUMM (130-400); Red Blood Count 2.52 MC/CUMM (3.8-5.5); Red Cell Distribution Width 25.4 % (9.3-17.3); White Blood Count 3.5 T/CUMM (4-12)
[2020-06-25 05:54] LABS: Osmolality,Calculated 287.7 MOS/KG (273-304)
[2020-06-25 06:21] LABS: Anisocytosis 1+; Hypochromasia 2+; Target Cells 1+
[2020-06-25 06:22] LABS: Macrocytosis 1+; Platelet Estimate Decreased
[2020-06-25 06:34] LABS: Haptoglobin < 8.0 MG/DL (30-200)
[2020-06-25] MEDS: LEVOTHYROXINE 50 MCG TABLET PO SCH (06:50)
[2020-06-25] MEDS: FAMOTIDINE 20 MG/2 ML VIAL IV SCH (09:15)
[2020-06-25] MEDS: cycloSPORINE OPH EMUL 1 VIAL BOTH EYES SCH ×2 (09:15→20:55)
[2020-06-25] MEDS: FOLIC ACID 1 MG TABLET PO SCH (09:35)
[2020-06-25 16:45] LABS: ABG Base Excess 5.7 MMOL/L (-2.5-2.5); ABG HCO3 29.7 MMOL/L (20-26); ABG Oxygen Saturation 99.6 % (95-100); ABG PCO2 39.7 MM HG (35-48); ABG PH 7.482 (7.35-7.45); ABG TCO2 27.5 MMOL/L (23-27)
[2020-06-25] MEDS: DEXTROSE 5% LACTATED RINGERS 1,000 ML IV SCH (17:17)
[2020-06-25] MEDS ORDERED: POTASSIUM CHLORIDE INJ 40 MEQ in DEXTROSE 5% LACTATED RINGERS 1,000 ML IV ONE (18:00)
[2020-06-26] MEDS: LEVOTHYROXINE 50 MCG TABLET PO SCH (05:37)
[2020-06-26 06:24] LABS: Hematocrit 23.3 VOL% (35.7-47.0); Hemoglobin 7.9 GM/DL (12.0-16.0); Immature Granulocytes % 0.3 %; Immature Granulocytes Absolute 0.01 #; Lymphocytes # 0.4 10*3/uL (1.4-4.0); Lymphocytes % 12.3 % (21.3-54.2); Mean Corpuscular HGB Conc 33.9 GM/DL (32-36); Mean Corpuscular Volume 92.8 FL (87-102); Monocytes % 14.6 % (1.7-12.7); NRBC # 0.04 10*3/uL; Neutrophils % 72.8 % (38.7-73.9); Platelet Count 49 T/CUMM (130-400); Red Blood Count 2.51 MC/CUMM (3.8-5.5); White Blood Count 3.6 T/CUMM (4-12)
[2020-06-26 06:39] LABS: Albumin 1.4 G/DL (3.4-5.0); Bilirubin,Total 0.7 MG/DL (0.2-1.0); Calcium 9.1 MG/DL (8.5-10.1); Osmolality,Calculated 287.8 MOS/KG (273-304); Total Protein 4.7 G/DL (6.4-8.3)
[2020-06-26] MEDS: FAMOTIDINE 20 MG/2 ML VIAL IV SCH (08:42)
[2020-06-26] MEDS: FOLIC ACID 1 MG TABLET PO SCH (08:43)
[2020-06-26] MEDS: cycloSPORINE OPH EMUL 1 VIAL BOTH EYES SCH ×2 (08:43→20:21)
[2020-06-26 09:12] LABS: Anisocytosis 2+; Band Neutrophils 2 % (0-10); Eosinophils 2 % (0-10); Hypochromasia 3+; Lymphocytes 15 % (20-55); Macrocytosis 2+; Ovalocytes Few; Segmented Neutrophils 68 % (50-85); Target Cells 2+; Total Cells Counted 100
[2020-06-26 09:13] LABS: Platelet Estimate Decreased
[2020-06-26] MEDS: DEXTROSE 5% LACTATED RINGERS 1,000 ML IV SCH (13:49)
[2020-06-26] MEDS: ACETAMINOPHEN 325 MG TABLET PO PRN (20:20)
[2020-06-27] MEDS ORDERED: METOPROLOL TARTRATE 5 MG/5 ML VIAL IV ONE (00:38)
[2020-06-27] MEDS: ACETAMINOPHEN 325 MG TABLET PO PRN (01:43)
[2020-06-27] MEDS ORDERED: ETOMIDATE 20 MG/10 ML VIAL IV ONE ×2 (03:35→03:49)
[2020-06-27] MEDS ORDERED: SUCCINYLCHOLINE 200 MG/10 ML VIAL ONE (03:36)
[2020-06-27] MEDS ORDERED: NOREPINEPHRINE 4 MG/4 ML VIAL IV ONE (03:39)
[2020-06-27] MEDS: NOREPINEPHRINE 8 MG in SODIUM CHLORIDE 0.9% 242 ML IV PRN ×2 (03:40→07:55)
[2020-06-27] MEDS ORDERED: VECURONIUM 10 MG VIAL IV ONE (03:40)
[2020-06-27] MEDS ORDERED: PHENYLEPHRINE DRIP 40 MG/250 ML PREMIX IV ONE (03:50)
[2020-06-27] MEDS: PHENYLEPHRINE DRIP 40 MG/250 ML PREMIX IV PRN ×3 (03:51→09:20)
[2020-06-27] MEDS ORDERED: EPINEPHrine 1 MG/10 ML SYRINGE IV ONE (03:52)
[2020-06-27] MEDS ORDERED: SODIUM BICARBONATE 50 MEQ/50 ML VIAL IV ONE ×2 (03:56→09:06)
[2020-06-27 04:52] LABS: ABG Base Excess 0.1 MMOL/L (-2.5-2.5); ABG HCO3 24.5 MMOL/L (20-26); ABG Oxygen Saturation 96.8 % (95-100); ABG PCO2 31.6 MM HG (35-48); ABG PH 7.476 (7.35-7.45); ABG PO2 84.5 MM HG (80-95); ABG TCO2 21.5 MMOL/L (23-27)
[2020-06-27 05:54] LABS: Hematocrit 24.7 VOL% (35.7-47.0); Hemoglobin 8.5 GM/DL (12.0-16.0); Lymphocytes # 0.2 10*3/uL (1.4-4.0); Lymphocytes % 19.7 % (21.3-54.2); Mean Corpuscular HGB Conc 34.4 GM/DL (32-36); Mean Corpuscular Volume 93.2 FL (87-102); Monocytes % 13.1 % (1.7-12.7); NRBC # 0.11 10*3/uL; Neutrophils % 67.2 % (38.7-73.9); Red Blood Count 2.65 MC/CUMM (3.8-5.5); Red Cell Distribution Width 26.1 % (9.3-17.3); White Blood Count 1.2 T/CUMM (4-12)
[2020-06-27 05:58] LABS: Platelet Count 36 T/CUMM (130-400)
[2020-06-27 06:08] LABS: Albumin 1.4 G/DL (3.4-5.0); Bilirubin,Direct 0.7 MG/DL (0.0-0.20); Bilirubin,Indirect 0.6 MG/DL (0.0-1.0); Bilirubin,Total 1.3 MG/DL (0.2-1.0); Osmolality,Calculated 294.3 MOS/KG (273-304); Total Protein 4.7 G/DL (6.4-8.3)
[2020-06-27] MEDS: PIPERACILLIN/TAZOBACTAM 3,375 MG in SODIUM CHLORIDE 0.9% 100 ML IV SCH ×2 (06:12→13:10)
[2020-06-27 06:25] LABS: Anisocytosis 2+; Band Neutrophils 36 % (0-10); Lymphocytes 16 % (20-55); Macrocytosis 2+; Nucleated Red Blood Cells 14 (0-5); Platelet Estimate Decreased; Segmented Neutrophils 34 % (50-85); Smudge Cells Few; Total Cells Counted 100
[2020-06-27 06:26] LABS: Burr Cells Few; Ovalocytes Few; Poikilocytosis Slight; Polychromasia Slight; Schistocytes Few; Target Cells 2+
[2020-06-27] MEDS: LEVOTHYROXINE 50 MCG TABLET PO SCH (06:34)
[2020-06-27] MEDS: FOLIC ACID 1 MG TABLET PO SCH (08:09)
[2020-06-27] MEDS: FAMOTIDINE 20 MG/2 ML VIAL IV SCH (08:10)
[2020-06-27] MEDS: DIGOXIN 0.5 MG/2 ML AMP IV SCH ×2 (08:10→14:32)
[2020-06-27] MEDS: cycloSPORINE OPH EMUL 1 VIAL BOTH EYES SCH (08:14)
[2020-06-27] MEDS ORDERED: MIDAZOLAM 10 MG/2 ML VIAL ONE (08:43)
[2020-06-27] MEDS ORDERED: SODIUM CHLORIDE 0.9% 1,000 ML IV ONE (09:05)
[2020-06-27] MEDS ORDERED: AMIODARONE INJ 150 MG in DEXTROSE 5% 100 ML IV ONE (09:05)
[2020-06-27] MEDS ORDERED: AMIODARONE 150 MG/3 ML VIAL ONE (09:05)
[2020-06-27] MEDS: DEXTROSE 50% 25 GM/50 ML VIAL IV PRN ×2 (09:08→12:33)
[2020-06-27] MEDS ORDERED: MIDAZOLAM 2 MG/2 ML VIAL IV ONE (09:15)
[2020-06-27] MEDS ORDERED: PHENYLEPHRINE INJ 160 MG in SODIUM CHLORIDE 0.9% 234 ML IV PRN (09:40)
[2020-06-27] MEDS ORDERED: NOREPINEPHRINE 16 MG in SODIUM CHLORIDE 0.9% 234 ML IV PRN (09:40)
[2020-06-27 13:14] VITALS: BP 12/9
== END 2020-06-27 12:53 | disposition expired | DRG 291 ==
LOC: N.OR 05:47 → N.SDSINP 05:50 → N.CVR 07:29 → SUATTDRO 07:51 → N.CVR 07:51 → N.TELES 06-24 14:10 → N.ICU 06-27 03:43
PROVIDERS: ADMIT Internal Medicine; ATTEND Internal Medicine